=== PATIENT | female | born 1945 | race Caucasian/White ===

== ENCOUNTER 2017-03-15 15:44 | Inpatient (IN) | payer MEDICARE, OTHER ==
[~2017-03-15] VITALS: Ht 157.5 cm; Wt 57.0 kg
[~2017-03-15 15:44] MED LIST: ASPI81TA3 PO; CARV12.598 PO; CHOL2000 PO; DEXL60CA2 PO; EPOE10003 SC; FERR-55 PO; FOLI-49 PO; FURO-109 PO; GLIP-95 PO; HYDR-3672 PO; ISOS40TA15 PO; LYRI25 PO; NEPH PO; OMEP40CA6 PO; SIMV40TA2 PO; SMV40T PO; SODI650T PO
[2017-03-15] MEDS ORDERED: SOD CHLORIDE 0.9% 500 ML IV STA (17:32)
[2017-03-15] MEDS ORDERED: morphine 2 MG INJ IV STA (17:32)
[2017-03-15] MEDS ORDERED: ONDANSETRON 4 MG INJ IV STA (17:32)
[2017-03-15] MEDS ORDERED: METO10TA96 PO (18:06)
--- NOTE | 2017-03-15 18:09 | RADRPT ---
PROCEDURE: XR Chest. CLINICAL INDICATION: Shortness of breath. TECHNIQUE: Single frontal view. COMPARISON: 07/18/2016. FINDINGS: There is mild atelectasis at the lung bases with left worse than right, unchanged. The lungs are ot herwise clear. The heart is mildly enlarged. There is a small right pleural effusion, smaller than seen previously. A small left pleural effusio n is unchanged. There is no pneumothorax. IMPRESSION: 1. Small right pleural effusion, smaller than seen previously. 2. Otherwise no change from 07/18/2016. RPTAT: QQ .Pritesh Cole MD, MD Date Time Electronically viewed and signed by .Pritesh Cole MD, on 03/15/2017 18:09 .R/
--- NOTE | 2017-03-15 18:15 | ERA ---
ER Documentation Chief Complaint Date/Time DATE: 03/15/17 TIME: 18:12 Chief Complaint ap intermittent x 2 weeks, on dialisis HPI 71 yo F hx of esrd on HD who presents to ED with 2 weeks of abd pain and chest pain. The patient describes mild diffuse cramping abdominal discomfort with associated nausea but no vomiting no diarrhea for at least 2 weeks that has been increasing in intensity and frequency. She also describes chest pain that is pressure-like and palpitations that is usually exertional and that is also increasing in frequency. She was scheduled to have outpatient imaging as well as scheduled to have outpatient angiography on March 26. The patient had persistence and increasing frequency of symptoms therefore presented to the emergency room. No chest pain currently. ROS All systems reviewed and are negative except as per history of present illness. Medications Home Meds Active Scripts Furosemide* (Lasix*) 40 Mg Tab, 20 MG PO DAILY@06 for 28 Days, BOTTLE Prov:ROCIO EVANS MD 06/05/16 Glipizide* (Glipizide*) 10 Mg Tablet, 5 MG PO BID, #60 TAB Prov:ROCIO EVANS MD 06/05/16 Simvastatin* (Zocor*) 40 Mg Tablet, 40 MG PO HS for 28 Days, TAB Prov:JAH NOWAK MD 07/10/15 Isosorbide Dinitrate* (Isordil*) 40 Mg Tab, 40 MG PO BID for 28 Days Prov:JAH NOWAK MD 07/10/15 Hydralazine Hcl* (Hydralazine Hcl*) 50 Mg Tab, 50 MG PO BID for 28 Days, TAB Prov:JAH NOWAK MD 07/10/15 Carvedilol* (Coreg*) 12.5 Mg Tab, 12.5 MG PO BID for 28 Days, BOT Prov:JAH NOWAK MD 07/10/15 Aspirin (Aspirin) 81 Mg Chew, 81 MG PO DAILY for 28 Days, BOTTLE Prov:JAH NOWAK MD 07/10/15 Reported Medications Metoclopramide Hcl* (Metoclopramide Hcl*) 10 Mg Tablet, 10 MG PO TID, TAB 03/15/17 Pregabalin* (Lyrica*) 25 Mg Capsule, 25 MG PO Y for PAIN, CAP 07/18/16 Multivit/Ca Carb/B Cmplx/Fa* (Becky-Maddy*) 1 Tab Tab, 1 TAB PO DAILY, TAB 07/18/16 Dexlansoprazole (Dexilant) 60 Mg Ac., 60 MG PO DAILY, #30 CAP 07/18/16 Simvastatin (Simvastatin) 40 Mg Tablet, 40 MG PO DAILY, TAB 11/22/14 Ferrous Sulfate* (Ferrous Sulfate*) 325 Mg Tablet, 325 MG PO BID, TAB 11/22/14 Folic Acid* (Folic Acid*) 1 Mg Tablet, 1 MG PO DAILY, TAB 11/22/14 Sodium Bicarbonate* (Sodium Bicarbonate*) 650 Mg Tablet, 650 MG PO DAILY, TAB 11/22/14 Discontinued Reported Medications Epoetin simeon* (Epogen* (ESRD)) 10,000 Unit/1 Ml Vial, 91257 UNIT SC WEEKLY for ON , VIAL 07/07/15 Cholecalciferol* (Vitamin D3*) 2,000 Unit Cap, 2000 UNIT PO DAILY, CAP 07/07/15 Omeprazole* (Omeprazole*) 40 Mg Capsule., 40 MG PO DAILY 01/29/14 Allergies Allergies: Coded Allergies: No Known Allergy (Unverified , 07/29/16) PMhx/Soc History of Surgery: Yes (C SECTION, AVF LEFT ARM,CHOLECYSTECTOMY) Anesthesia Reaction: No Hx Neurological Disorder: No Hx Respiratory Disorders: No Hx Cardiac Disorders: Yes (HTN) Hx Psychiatric Problems: No Hx Miscellaneous Medical Probl: No Hx Alcohol Use: No Hx Substance Use: No Hx Tobacco Use: No FmHx Family History: No diabetes Physical Exam Vitals Vital Signs Date Time Temp Pulse Resp B/P Pulse Ox O2 Delivery O2 Flow Rate FiO2 03/15/17 19:53 55 12 137/78 96 Room Air 03/15/17 15:45 97.8 66 18 155/69 99 Physical Exam General: Well developed, well nourished, no acute distress Head: Normocephalic, atraumatic. Eyes: Pupils equally reactive, EOM intact ENT: Moist mucous membranes Neck: Supple, no lymphadenopathy Respiratory: Lungs clear bilaterally, no distress Cardiovascular: RRR, no murmurs, rubs, or gallops Abdominal: Soft, slightly protuberant but nontender, non-distended, no peritoneal signs : Deferred MSK: No edema, no unilateral swelling, 5/5 strength, left upper extremity AV fistula with good bruit and thrill Neurologic: Alert and oriented, moving all extremities, normal speech, no focal weakness, no cerebellar signs Skin: No rash Psych: Normal mood Result Diagram: 03/15/17181103/15/171811 Results 24 hrs Laboratory Tests Test 03/15/17 18:12 White Blood Count 5.210^3/ul Red Blood Count 3.5610^6/ul Hemoglobin 12.3g/dl Hematocrit 35.6% Mean Corpuscular Volume 100.0fl Mean Corpuscular Hemoglobin 34.6pg Mean Corpuscular Hemoglobin Concent 34.6g/dl Red Cell Distribution Width 13.8% Platelet Count 16158^3/UL Mean Platelet Volume 9.6fl Neutrophils % 50.6% Lymphocytes % 30.3% Monocytes % 13.9% Eosinophils % 4.0% Basophils % 0.6% Nucleated Red Blood Cells % 0.0/100WBC Neutrophils # 2.610^3/ul Lymphocytes # 1.610^3/ul Monocytes # 0.710^3/ul Eosinophils # 0.210^3/ul Basophils # 0.010^3/ul Nucleated Red Blood Cells # 0.010^3/ul Prothrombin Time 16.4Sec Prothrombin Time Ratio 1.3 INR International Normalized Ratio 1.31 Activated Partial Thromboplast Time 37.5Sec Sodium Level 129mmol/L Potassium Level 4.0mmol/L Chloride Level 87mmol/L Carbon Dioxide Level 27mmol/L Anion Gap 19 Blood Urea Nitrogen 45mg/dl Creatinine 4.38mg/dl Glucose Level 120mg/dl Calcium Level 8.5mg/dl Total Bilirubin 0.2mg/dl Direct Bilirubin 0.00mg/dl Indirect Bilirubin 0.2mg/dl Aspartate Amino Transf (AST/SGOT) 49IU/L Alanine Aminotransferase (ALT/SGPT) 46IU/L Alkaline Phosphatase 230IU/L Troponin I < 0.012ng/ml Total Protein 6.9g/dl Albumin 3.1g/dl Globulin 3.80g/dl Albumin/Globulin Ratio 0.81 Lipase 23U/L Current Medications Medications (Trade) Dose Ordered Sig/Maida Route PRN Reason Start Time Stop Time Status Last Admin Dose Admin Sodium Chloride (NS) 500 ml @ 500 mls/hr Q1H STAT IV 03/15/17 17:32 03/15/17 18:31 DC 03/15/17 18:44 Morphine Sulfate (morphine) 2 mg ONCE STAT IV 03/15/17 17:32 03/15/17 17:34 DC Ondansetron HCl (Zofran Inj) 4 mg ONCE STAT IV 03/15/17 17:32 03/15/17 17:34 DC 03/15/17 18:43 Hydromorphone HCl (Dilaudid) 0.5 mg ONCE STAT IV 03/15/17 18:30 03/15/17 18:31 DC 03/15/17 18:43 Procedures/MDM EKG, MONITORS, & DIAGNOSTIC IMAGING: EKG: I reviewed and interpreted a 12-lead EKG. Rhythm: Normal sinus rhythm Ectopy: None Intervals: Bifascicular block ST segments: No elevations or depressions T waves: No contiguous inversions Chest x-ray: I reviewed and interpreted a 1 view of the chest Mediastinum: No enlargement Cardiac silhouette: No cardiomegaly Airspace: Clear lung saab bilaterally without evidence of pneumothorax Bones: No evidence of fracture CT abdomen and pelvis: IMPRESSION: No evidence of abdominopelvic mass, lymphadenopathy or acute inflammatory pathology. Scattered bibasilar atelectasis with trace bilateral pleural fluid. RPTAT: QQ LAB INTERPRETATION: Chronic renal failure, no hyperkalemia, hyponatremia, negative troponin MEDICAL DECISION MAKING: The patient has multiple complaints including 2 weeks of chest pain abdominal pain however these have been increasing in intensity and frequency. The chest pain is exertional. Given the patient's age, comorbidities this is a strong concern for possible cardiac etiology. It appears the patient is scheduled for an angiogram by Dr. Marsh on March 26. The patient also describes abdominal pain. I do not believe this is consistent with acute dissection given chronicity of symptoms. The patient will benefit from CT imaging of the abdomen and pelvis. Given the patient's chest pain inpatient hospitalization is likely necessary. ER COURSE: The patient continues to be well-appearing, aspirin provided after negative CT imaging. The patient is chest pain-free, her abdominal pain is controlled. The patient will be admitted for further management of chest pain. I kept the patient and/or family informed of laboratory and diagnostic imaging results throughout the emergency room course. DISPOSITION PLAN: Telemetry admission for management of chest pain and rule out of acute coronary syndrome. CONSULTATION: Accepting care team and consultations: I discussed the current laboratory data, diagnostic imaging and emergency care provided. Admitting team: Dr. Jah Nowak Admitting team indication: Insurance directed Consulting services: Dr. Marsh can be consulted on a nonemergent basis Departure Diagnosis: Primary Impression: Chest pain Qualified Code: R07.9 - Chest pain, unspecified type Additional Impressions: Generalized abdominal pain End stage renal disease on dialysis Hyponatremia Condition: Stable MICHELLE BAILEY MD March 15, 2017 18:15
[2017-03-15 18:29] LABS: ADD SCAN DIFF NO
[2017-03-15] MEDS ORDERED: HYDROmorphONE 1 MG/ML SYG IV STA (18:30)
[2017-03-15 18:32] LABS: BASOPHILS % 0.6 % (0.0-2.0); EOSINOPHILS # 0.2 10^3/ul (0.0-0.5); HEMATOCRIT 35.6 % (37.0-47.0); HEMOGLOBIN 12.3 g/dl (12.0-16.0); LYMPHOCYTES # 1.6 10^3/ul (0.8-2.9); LYMPHOCYTES % 30.3 % (15.0-51.0); MEAN CORPUSCULAR HEMOGLOBIN 34.6 pg (29.0-33.0); MEAN CORPUSCULAR HGB CONC 34.6 g/dl (32.0-37.0); MEAN PLATELET VOLUME 9.6 fl (7.4-10.4); MONOCYTE # 0.7 10^3/ul (0.3-0.9); MONOCYTES % 13.9 % (0.0-11.0); NEUTROPHIL # 2.6 10^3/ul (1.6-7.5); NEUTROPHILS % 50.6 % (39.0-77.0); PLATELET COUNT 173 10^3/UL (140-415); RED BLOOD COUNT 3.56 10^6/ul (4.20-5.40); RED CELL DISTRIBUTION WIDTH 13.8 % (11.5-14.5); WHITE BLOOD COUNT 5.2 10^3/ul (4.8-10.8)
[2017-03-15 18:41] LABS: ALBUMIN 3.1 g/dl (3.3-4.9); CHLORIDE 87 mmol/L (97-110); SODIUM 129 mmol/L (135-144)
[2017-03-15 18:42] LABS: INR 1.31; PROTIME 16.4 Sec (12.2-14.2); PT RATIO 1.3
[2017-03-15 18:43] LABS: ANION GAP 19 (8-16); BILIRUBIN,INDIRECT 0.2 mg/dl (0-1.1); BILIRUBIN,TOTAL 0.2 mg/dl (0.2-1.3); CARBON DIOXIDE 27 mmol/L (21-31); CREATININE 4.38 mg/dl (0.44-1.00); PARTIAL THROMBOPLASTIN TIME 37.5 Sec (25.0-35.0)
[2017-03-15 18:44] LABS: ALANINE AMINOTRANSFERASE 46 IU/L (13-69); ALBUMIN/GLOBULIN RATIO 0.81; ALKALINE PHOSPHATASE 230 IU/L (42-121); ASPARTATE AMINO TRANSFERASE 49 IU/L (15-46); BLOOD UREA NITROGEN 45 mg/dl (7-20); CALCIUM 8.5 mg/dl (8.4-10.2); GLUCOSE 120 mg/dl (70-220); TOTAL PROTEIN 6.9 g/dl (6.1-8.1)
[2017-03-15 19:01] LABS: TROPONIN-I < 0.012 ng/ml (0.00-0.12)
--- NOTE | 2017-03-15 19:51 | RADRPT ---
PROCEDURE: CT Abdomen and Pelvis without contrast. CLINICAL INDICATION: Abdominal pain. TECHNIQUE: Multiple contiguous axial CT images of the abdomen and pelvis were obtained without the administration of intravenous contrast. Coronal and sagittal reconstructions were also performed. CTDIvol (mGy): 7.94; Total Exam DLP (mGy-cm): 386.12. One or more of the following dose reduction techniques were utilized: - Automated exposure control. - Adjustment of the mA and/or kV according to patient size. - Use of iterative reconstruction technique. COMPARISON: 06/02/2016. FINDINGS: Limited imaging of the lower thorax demonstrates cardiomegaly with trace bilateral pleural fluid and scattered atelectasis throughout the lung bases. The liver and spleen are homogeneous in density. Multiple splenules are seen within the left upper q uadrant. The gallbladder is surgically absent. Fatty atrophy of the pancreas is observed. The adre nal glands are unremarkable. The kidneys are symmetric in size. There are no nephroureteral stones. There is no hydronephrosis o r abnormal perinephric inflammation. The abdominal aorta is normal in caliber. Atherosclerotic calcification is present. There is no per iaortic / retroperitoneal lymphadenopathy. 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 The stomach and small and large intestines are unremarkable. The appendix is normal. There are no focal inflammatory changes of the mesentery. There is no mesenteric lymphadenopathy. There is no a scites. The bladder, uterus and adnexa are unremarkable. There is no free pelvic fluid. There is no pelvic sidewall or inguinal lymphadenopathy. Degenerative changes of the spine are present. Body wall soft tissues are unremarkable. IMPRESSION: No evidence of abdominopelvic mass, lymphadenopathy or acute inflammatory pathology. Scattered bibasilar atelectasis with trace bilateral pleural fluid. RPTAT: QQ .Amie Herrera MD, Date Time Electronically viewed and signed by .Amie Herrera MD, MD on 03/15/2017 19:51 .T/
[2017-03-15] MEDS ORDERED: METOCLOPRAMIDE 10 MG INJ IV ONE (20:30)
[2017-03-15] MEDS ORDERED: ACETAMINOPHEN 325 MG TAB PO PRN (20:30)
[2017-03-15] MEDS ORDERED: ASPIRIN 81 MG TAB PO ONE (20:30)
[2017-03-15] MEDS ORDERED: ONDANSETRON 4 MG INJ IV PRN (20:30)
[2017-03-15 22:44] VITALS: PULSE 56
[2017-03-15 23:00] VITALS: Ht 157.5 cm; Wt 57.0 kg
[2017-03-16] VITALS (24 sets, daily range): BP systolic 110–192; BP diastolic 48–91; PULSE 55–90; RESP 17–20
[2017-03-16] MEDS ORDERED: SOD CHLORIDE 0.9% 1,000 ML IV SCH (01:30)
[2017-03-16] MEDS ORDERED: ONDANSETRON 4 MG INJ IV PRN (01:30)
[2017-03-16] MEDS ORDERED: DEXTROSE 50% 50 ML SYRINGE IV PRN ×2 (02:00)
[2017-03-16] MEDS ORDERED: GLUCOSE GEL 15 GRAM TUBE BUCCAL PRN (02:00)
[2017-03-16] MEDS ORDERED: GLUCOSE GEL 15 GRAM TUBE PO PRN ×2 (02:00)
[2017-03-16] MEDS: ACCU-CHEK XX SCH (02:00)
[2017-03-16] MEDS ORDERED: GLUCAGON 1 MG INJ IM PRN (02:00)
[2017-03-16] MEDS: INSULIN ASPART [NOVOLOG] 3 ML PEN SC SCH ×4 (08:00→20:59)
[2017-03-16 08:29] LABS: ADD SCAN DIFF NO
[2017-03-16 08:38] LABS: BASOPHILS % 0.2 % (0.0-2.0); EOSINOPHILS # 0.1 10^3/ul (0.0-0.5); EOSINOPHILS % 1.2 % (0.0-7.0); HEMATOCRIT 36.1 % (37.0-47.0); LYMPHOCYTES # 1.3 10^3/ul (0.8-2.9); LYMPHOCYTES % 23.3 % (15.0-51.0); MEAN CORPUSCULAR HEMOGLOBIN 33.9 pg (29.0-33.0); MEAN CORPUSCULAR HGB CONC 33.2 g/dl (32.0-37.0); MEAN PLATELET VOLUME 10.1 fl (7.4-10.4); MONOCYTE # 0.6 10^3/ul (0.3-0.9); MONOCYTES % 11.2 % (0.0-11.0); NEUTROPHIL # 3.6 10^3/ul (1.6-7.5); NEUTROPHILS % 63.6 % (39.0-77.0); PLATELET COUNT 169 10^3/UL (140-415); RED BLOOD COUNT 3.54 10^6/ul (4.20-5.40); RED CELL DISTRIBUTION WIDTH 14.1 % (11.5-14.5); WHITE BLOOD COUNT 5.6 10^3/ul (4.8-10.8)
[2017-03-16 08:55] LABS: ALBUMIN 3.2 g/dl (3.3-4.9); ALBUMIN/GLOBULIN RATIO 0.91; BILIRUBIN,INDIRECT 0.2 mg/dl (0-1.1); BILIRUBIN,TOTAL 0.2 mg/dl (0.2-1.3); CALCIUM 8.7 mg/dl (8.4-10.2); CHOL/HDL RATIO 3.5 RATIO; CREATININE 4.28 mg/dl (0.44-1.00); POTASSIUM 4.9 mmol/L (3.5-5.1); TOTAL PROTEIN 6.7 g/dl (6.1-8.1)
[2017-03-16] MEDS: MULTIVIT/CA CARB/B CMPLX/FA TAB PO SCH (09:18)
[2017-03-16] MEDS: ASPIRIN 81 MG TAB PO SCH (09:18)
[2017-03-16] MEDS: FERROUS SULFATE (EC) 325 MG TAB PO SCH (09:19)
[2017-03-16] MEDS: NA BICARBONATE 650 MG TAB PO SCH (09:19)
[2017-03-16] MEDS: FOLIC ACID 1 MG TAB PO SCH (09:19)
--- NOTE | 2017-03-16 17:31 | QN ---
Documentation Comment [id number] CRISTA SHAHID MD March 16, 2017 17:31
[2017-03-16] MEDS ORDERED: hydrALAzine 20 MG INJ IV PRN (22:30)
[2017-03-16] MEDS: ACETAMINOPHEN 325 MG TAB PO PRN (23:01)
--- NOTE | 2017-03-16 23:59 | RADRPT ---
Echocardiogram Report Patient Name: CHOLO OJEDA Gender: Female Date: 1945 Study Date: 16-Mar-2017 Life Coach: Herminia Meadows [facility] Location: 5551 Ref. Physician: CRISTA SHAHID Quality: Adequate Procedures: Transthoracic echocardiogram with complete 2D, M-Mode, and doppler examination. Indications: Chest Pain. 2D/M Mode Doppler Measurement Value Normal Ranges Measurement Value Normal Ranges LVIDd 2D 5.2 3.5 - 5.6 cm AV Peak Leighton 1.5 m/sec LVIDs 2D 4.1 2.1 - 4.1 cm AV Peak PG 9.3 mmHg LVPWd 2D 1.0 0.6 - 1.1 cm AI Peak PG 22.0 mmHg IVSd 2D 1.1 0.6 - 1.1 cm AI Peak Leighton 2.3 m/sec AoR Diam 2D 2.0 2.0 - 3.7 cm AI PHT 853.8 msec EDV 2D 131.5 cm3 LVOT Peak Leighton 0.9 m/sec ESV 2D 67.0 cm3 LVOT Peak PG 3.3 mmHg LA Dimen 2D 4.4 2.3 - 4.0 cm MV E Peak Leighton 1.2 m/sec MV A Peak Leighton 0.9 m/sec MV E/A 1.5 MV Decel Time 233 msec MV Decel Dorado 5 MV E/A 1.5 TR Peak Leighton 3.9 m/sec TR Peak PG 59.4 mmHg RVSP 62.0 mmHg Findings Left Ventricle: Normal left ventricular cavity size. Mild concentric left ventricular hypertrophy. Mild global left ventricular systolic dysfunction. Ejection fraction is visually estimated at 45 %. Tissue Doppler/Mitral Doppler indices are consistent with impaired relaxation (Stage I diastolic dysfunction). Right Ventricle: Normal right ventricular size. Normal right ventricular systolic function. Left Atrium: There is moderate enlargement of left atrium. Right Atrium: There is moderate enlargement of right atrium. Mitral Valve: Mild mitral annular calcification. Moderate mitral valve regurgitation. Aortic Valve: No hemodynamically significant aortic stenosis by doppler. Aortic cusps appear mildly calcified. Mild to moderate aortic valve regurgitation. Tricuspid Valve: Estimated peak PA systolic pressure 62 mmHg. Tricuspid valve appears mildly thickened. There is moderate tricuspid regurgitation. Pulmonic Valve: There is mild pulmonic regurgitation. Pericardium: Normal pericardium with no significant pericardial effusion. Aorta: Normal aortic root. IVC: Dilated IVC with respiratory collapse consistent with elevated right atrial pressure. Conclusions 1.Normal left ventricular cavity size. Mild concentric left ventricular hypertrophy. Mild global left ventricular systolic dysfunction. Ejection fraction is visually estimated at 45 %. Tissue Doppler/Mitral Doppler indices are consistent with impaired relaxation (Stage I diastolic dysfunction). 2.There is moderate enlargement of left atrium. 3.There is moderate enlargement of right atrium. 4.Moderate mitral valve regurgitation. 5.Mild to moderate aortic valve regurgitation. 6.Estimated peak PA systolic pressure 62 mmHg. Tricuspid valve appears mildly thickened. There is moderate tricuspid regurgitation. 7.There is mild pulmonic regurgitation. Electronically Signed By: Modesto Marsh 16-Mar-2017 23:59:03 -0700 Patient Name: CHOLO OJEDA Study Date: 16-Mar-2017 [id number]
[2017-03-17] VITALS (11 sets, daily range): BP systolic 118–165; BP diastolic 55–72; PULSE 59–69; RESP 17–18
[2017-03-17 01:53] LABS: CK-MB 3.1 ng/ml (0.0-2.4)
[2017-03-17 01:56] LABS: TROPONIN-I 0.014 ng/ml (0.00-0.12)
[2017-03-17] MEDS: ACCU-CHEK XX SCH (02:00)
--- NOTE | 2017-03-17 02:01 | CONS ---
DATE OF ADMISSION: 03/16/2017 DATE OF CONSULTATION: 03/16/2017 REASON FOR CONSULTATION: Chest pain, shortness of breath, assess for acute coronary syndrome. Asse ss for congestive heart failure. REQUESTING PHYSICIAN: Jah Shahid MD HISTORY OF PRESENT ILLNESS: Ms. Stiles is a 71-year-old female, well known to myself as a primary o ffice patient, with a history of hypertension, dyslipidemia, end-stage renal disease on hemodialysis , AV fistula who presented with complaints of substernal chest pain, poorly described, and associate d shortness of breath. Upon arrival, temperature of 97.8, blood pressure 155/69, pulse 66, respirat ory rate 18, saturating 99%. The patient's labs revealed a white cell of 5.2, hemoglobin 12.3, plat elet count of 173. Sodium of 129, potassium 4.0, creatinine of 4.3, BUN of 45. Troponin negative. INR 1.31. The patient underwent a chest x-ray revealing small right pleural effusion, smaller than seen previously. An abdominal pelvic CT revealing no evidence of abdominopelvic mass, lymphadenopa thy, or acute inflammatory pathology, scattered bibasilar atelectasis with trace bilateral pleural f luid. The patient's electrocardiogram revealed sinus rhythm, rate of 64 with left axis deviation, r ight bundle branch block, left ventricular hypertrophy by voltage criteria, and a single PVC. The p atient subsequently admitted to the floor and, since admit to floor, continues to have shortness of breath, intermittent chest pain, poorly described. PAST MEDICAL HISTORY: As above in HPI. MEDICATIONS CURRENTLY IN HOSPITAL: 1. Hydralazine IV push p.r.n. 2. Aspirin 81 mg daily. 3. Folic acid 1 mg daily. 4. Sodium bicarbonate 650 mg daily. 5. Ferrous sulfate 325 mg daily. 6. Renavite 1 tab daily. 7. Insulin sliding scale. 8. Clonidine p.r.n. 9. Carvedilol 12.5 mg p.o. b.i.d. MEDICATIONS PRIOR TO ADMIT: 1. Carvedilol 12.5 mg b.i.d. 2. Hydralazine 50 mg p.o. b.i.d. 3. Isordil 40 mg p.o. b.i.d. 4. Simvastatin 40 mg at bedtime. 5. Aspirin 81 mg daily. 6. Lyrica 25 mg p.r.n. 7. Lasix 20 mg daily. 8. Reglan. 9. Sodium bicarbonate. 10. Multivitamins. ALLERGIES: NO KNOWN DRUG ALLERGIES. SOCIAL HISTORY: No tobacco, ETOH, or illicit drug use. FAMILY HISTORY: No history of sudden cardiac or early CAD. REVIEW OF SYSTEMS: As above in HPI. CONSTITUTIONAL: No fevers, chills. PULMONARY: Shortness of breath. CARDIOVASCULAR: Positive chest pain. GASTROINTESTINAL: No vomiting. GENITOURINARY: End-stage renal disease on hemodialysis. PSYCHIATRIC: The patient denies depression. NEUROLOGIC: No documented history of CVA. ENDOCRINE: No documented history of diabetes mellitus. PHYSICAL EXAMINATION: VITAL SIGNS: Temperature 97.8, blood pressure most recently of 179/71, pulse 72, respiratory rate 1 8, satting 98%. GENERAL: The patient is alert, awake, complaining of shortness of breath, intermittent chest pain. NECK: JVP approximately 9 cm water. CHEST: Fair movement throughout with mildly decreased breath sounds at bases bilaterally. HEART: Regular rate and rhythm. Normal S1, S2, I/ systolic murmur, nondisplaced PMI. ABDOMEN: Positive bowel sounds, soft. EXTREMITIES: Trace edema, 1+ pulses bilaterally, posterior tibial. LABORATORY DATA: Most recently from today: Sodium 126, potassium 4.9, creatinine 4.8, BUN 16. Tro ponin negative x2. LDL of 66, HDL 33. White blood count 5.6, hemoglobin of 12.0, platelet count 16 9. INR of 1.31. IMAGING STUDIES: As above in HPI. No further imaging studies for my review at this time. ELECTROCARDIOGRAM: As above in HPI. No further electrocardiograms for my review at this time. IMPRESSION: 1. Chest pain, assess for acute coronary syndrome with negative troponins x2 at this time with poor ly described symptoms. 2. Abnormal electrocardiogram with right bundle block pattern secondary to repolarization abnormali ties. 3. Premature ventricular contractions on electrocardiogram. 4. Shortness of breath, assess for congestive heart failure. 5. End-stage renal disease on hemodialysis. 6. Hyponatremia. 7. Possible diabetes mellitus on medications. RECOMMENDATIONS: 1. At this time, would maintain the patient on telemetry monitoring to follow rhythm and rate contr ol closely. 2. We will continue the patient's current carvedilol for control of blood pressure and will additio adriano reinitiate patient on baseline hydralazine to improve overall systolic blood pressure control. 3. Complete the patient's rule out for myocardial infarction to ensure that the patient's chest vikash n is not due to acute coronary syndrome, such as acute myocardial infarction. Thus send a final tro ponin along with CK and CK-MB, given lack of adequate clearance troponins in setting of renal failur e. 4. Continue the patient's aspirin at this time for prophylaxis against cardiovascular events. 5. Will reinitiate patient on baseline low-dose oral nitrates and follow symptomatology. 6. Check a 2D echo to further assess patient's ejection fraction, wall motion, and major valve abno rmalities. 7. If patient rules out for myocardial infarction, we will schedule patient for cardiac stress test to assess for the possibility of significant obstructive coronary disease lending to the patient's symptoms of chest pain or causing ischemia. Thank you for allowing me to take part in the care of this patient. I will continue to follow along very closely with you. Further recommendations will be made as the patient progresses through her inpatient hospital clinical course. Dictated By: MICHELLE VALDEZ/RONNIE Conf#: [id number] DID#: [id number] CC: JAH SHAHID MD;*EndCC*
[2017-03-17 06:47] LABS: ADD SCAN DIFF NO
[2017-03-17 06:52] LABS: BASOPHILS % 0.4 % (0.0-2.0); EOSINOPHILS # 0.1 10^3/ul (0.0-0.5); EOSINOPHILS % 2.2 % (0.0-7.0); HEMATOCRIT 35.9 % (37.0-47.0); HEMOGLOBIN 11.8 g/dl (12.0-16.0); LYMPHOCYTES # 0.8 10^3/ul (0.8-2.9); LYMPHOCYTES % 18.3 % (15.0-51.0); MEAN CORPUSCULAR HEMOGLOBIN 33.5 pg (29.0-33.0); MEAN CORPUSCULAR HGB CONC 32.9 g/dl (32.0-37.0); MEAN PLATELET VOLUME 9.9 fl (7.4-10.4); MONOCYTE # 0.6 10^3/ul (0.3-0.9); MONOCYTES % 12.2 % (0.0-11.0); NEUTROPHILS % 66.5 % (39.0-77.0); PLATELET COUNT 157 10^3/UL (140-415); RED BLOOD COUNT 3.52 10^6/ul (4.20-5.40); RED CELL DISTRIBUTION WIDTH 14.6 % (11.5-14.5); WHITE BLOOD COUNT 4.5 10^3/ul (4.8-10.8)
--- NOTE | 2017-03-17 07:04 | HP ---
DATE OF ADMISSION: 03/16/2017 HISTORY OF PRESENT ILLNESS: Mor Stiles is an elderly female with history of ESRD, hypertension. The patient has history of CAD, previously has been discharged with diagnosis of CKD 5, ESRD, history of diabetes mellitus, hypertension, dyslipidemia, CAD, presented with shortness of breath, chest pain , and abdominal pain. The patient's laboratory data shows the patient has blood pressure 150_/72. The patient's hematocrit 36.1, platelet count of 169, sodium 126, potassium 4.9 , BUN of 49, creatinine 4.28, alkaline phosphatase 184. Troponin is negative. Ultrasound of the abdomen shows no evidence of abdominopelvic mass, lymphadenopathy, or acute inflammatory, scattered basilar atelectasis with trace pleural effusion. Chest x-ray has a small right pleural effusion, smaller than the . ALLERGY HISTORY: NEGATIVE. FAMILY HISTORY: Negative. SOCIAL HISTORY: Negative. MEDICATION HISTORY: Listed as patient is on aspirin, Coreg, Dexilant,_, folic acid, Lasix, , Nephro-Maddy, Reglan, multiple vitamin, simvastatin, Zocor, and sodium bicarbonate. REVIEW OF SYSTEMS: HEENT: Unremarkable. RESPIRATORY: Short of breath, dyspnea on exertion. ABDOMEN: occ_ abdominal pain. EXTREMITIES: No swelling seen. CENTRAL NERVOUS SYSTEM: Unremarkable. PHYSICAL EXAMINATION: GENERAL: Pale-looking female, awake. VITAL SIGNS: Stable. HEAD: Atraumatic, normocephalic. Pupils are equal, reactive to light. NECK: Supple. No JVD. LUNGS: Clear. CARDIOVASCULAR: S1, S2 normal. ABDOMEN: Soft, nontender. Bowel sounds present. No palpable mass. EXTREMITIES: No cyanosis, clubbing. Trace edema noted. LABORATORY DATA: As mentioned above. Patient's EKG has been reviewed. IMPRESSION: 1. ____ ischemic heart disease, dyspepsia, rule out gastroesophageal reflux disease. 2. End-stage renal disease. 2. Hypertension. 3. Diabetes mellitus. 4. Anemia. 5. Hypernatremia. 6. Hypoalbuminemia. PLAN: To obtain GI consultation, cardiology consultation. Continue renal diet , hemodialysis. RECOMMENDATIONS: From cardiology. Home medications will be reviewed and continued. Dictated By: CRISTA SCHNEIDER/RONNIE Conf#: [id number] DID#: [id number] [facility]
[2017-03-17 07:10] LABS: ALBUMIN 2.9 g/dl (3.3-4.9); ALBUMIN/GLOBULIN RATIO 0.82; BILIRUBIN,INDIRECT 0.2 mg/dl (0-1.1); BILIRUBIN,TOTAL 0.2 mg/dl (0.2-1.3); CALCIUM 8.4 mg/dl (8.4-10.2); CREATININE 3.61 mg/dl (0.44-1.00); POTASSIUM 3.8 mmol/L (3.5-5.1); TOTAL PROTEIN 6.4 g/dl (6.1-8.1)
[2017-03-17 07:22] LABS: CK-MB 2.98 ng/ml (0.0-2.4); TROPONIN-I 0.028 ng/ml (0.00-0.12)
[2017-03-17] MEDS: INSULIN ASPART [NOVOLOG] 3 ML PEN SC SCH ×4 (08:00→20:41)
[2017-03-17] MEDS: ISOSORBIDE DINITRATE 10 MG TAB PO SCH ×3 (08:37→20:36)
[2017-03-17] MEDS: MULTIVIT/CA CARB/B CMPLX/FA TAB PO SCH (08:37)
[2017-03-17] MEDS: ASPIRIN 81 MG TAB PO SCH (08:37)
[2017-03-17] MEDS: NA BICARBONATE 650 MG TAB PO SCH (08:37)
[2017-03-17] MEDS: FOLIC ACID 1 MG TAB PO SCH (08:43)
--- NOTE | 2017-03-17 08:59 | CONS ---
Date/Time of Note Date/Time of Note DATE: 03/17/17 TIME: 08:57 Assessment/Plan Assessment/Plan Additional Assessment/Plan 1. Chest pain, assess for acute coronary syndrome with negative troponins x2 at this time with poorly described symptoms- Sahra stress test planned for today. 2. Abnormal electrocardiogram with right bundle block pattern secondary to repolarization abnormalities- no brodie noted. 3. Premature ventricular contractions on electrocardiogram - better now, keep electrolytes in range. 4. Shortness of breath, assess for congestive heart failure - pending ECHO. 5. End-stage renal disease on hemodialysis- Rx as needed. 6. Hyponatremia. 7. Possible diabetes mellitus on medications. Consultation Date/Type/Reason Admit Date/Time March 16, 2017 at 11:28 Initial Consult Date 24 HR Interval Summary Free Text/Dictation Sahra stress test planned for today. NO CP. Rare PVC. ROS: No fever, no chills, no nausea, no vomiting, no diarrhea/constipation No recent weight changes No chest pain, no PND, no orthopnea No dizziness, blurred vision No thirst, no heat or cold intolerance Exam/Review of Systems Vital Signs Vitals Vital Signs Date Time Temp Pulse Resp B/P Pulse Ox O2 Delivery O2 Flow Rate FiO2 03/17/17 08:11 59 03/17/17 07:45 97.6 18 118/55 96 03/16/17 22:00 Room Air 03/16/17 20:00 2.0 Intake and Output 03/16/17 03/16/17 03/17/17 15:00 23:00 07:00 Intake Total 300 ml 120 ml Output Total 2800 ml Balance -2500 ml 120 ml Exam General: WN/WD/NAD, AOx 2-3 HEENT: Unicetric/atraumatic/EOMI (follows commands) NECK: JVD elevated, no thyromegaly Lymph: no lymphadenopathy HEART: regular with no S3, II/ systolic murmur at apex LUNGS: Coarse sounds ABD: soft, NT, ND, +BS : Intact Neuro: non focal SKIN: chronic changes EXT: trace edema Results Result Diagram: 03/17/17 0545 03/17/17 0545 Results 24 hrs Laboratory Tests Test 03/16/17 11:05 03/16/17 12:26 03/16/17 17:33 03/16/17 17:40 Troponin I < 0.012 < 0.012 Bedside Glucose 120 230 H Test 03/16/17 20:58 03/17/17 00:40 03/17/17 05:45 03/17/17 07:59 Bedside Glucose 171 162 Creatine Kinase 189 177 Creatine Kinase Index 1.6 1.7 Creatinine Kinase MB (Mass) 3.10 H 2.98 H Troponin I 0.014 0.028 White Blood Count 4.5 L Red Blood Count 3.52 L Hemoglobin 11.8 L Hematocrit 35.9 L Mean Corpuscular Volume 102.0 H Mean Corpuscular Hemoglobin 33.5 H Mean Corpuscular Hemoglobin Concent 32.9 Red Cell Distribution Width 14.6 H Platelet Count 157 Mean Platelet Volume 9.9 Neutrophils % 66.5 Lymphocytes % 18.3 Monocytes % 12.2 H Eosinophils % 2.2 Basophils % 0.4 Nucleated Red Blood Cells % 0.0 Neutrophils # 3.0 Lymphocytes # 0.8 Monocytes # 0.6 Eosinophils # 0.1 Basophils # 0.0 Nucleated Red Blood Cells # 0.0 Sodium Level 134 L Potassium Level 3.8 Chloride Level 103 # Carbon Dioxide Level 23 Anion Gap 12 Blood Urea Nitrogen 39 H Creatinine 3.61 H Glucose Level 194 Calcium Level 8.4 Total Bilirubin 0.2 Direct Bilirubin 0.00 Indirect Bilirubin 0.2 Aspartate Amino Transf (AST/SGOT) 40 Alanine Aminotransferase (ALT/SGPT) 38 Alkaline Phosphatase 171 H Total Protein 6.4 Albumin 2.9 L Globulin 3.50 H Albumin/Globulin Ratio 0.82 Medications Medications Current Medications Aspirin (Aspirin) 81 mg DAILY PO Last administered on 03/17/17 08:37; Admin Dose 81 MG; Start 03/16/17 at 09:00 Carvedilol (Coreg) 12.5 mg BID PO Last administered on 03/17/17 08:38; Admin Dose 12.5 MG; Start 03/16/17 at 00:00 Sodium Bicarbonate (Sodium Bicarbonate Tab) 650 mg DAILY PO Last administered on 03/17/17 08:37; Admin Dose 650 MG; Start 03/16/17 at 09:00 Folic Acid (Folic Acid) 1 mg DAILY PO Last administered on 03/17/17 08:43; Admin Dose 1 MG; Start 03/16/17 at 09:00 Ferrous Sulfate (Ferrous Sulfate (Ec)) 325 mg DAILY PO Last administered on 09:19; Admin Dose 325 MG; Start 03/16/17 at 09:00 Multivit/Ca Carb/ B Cmplx/FA/Prenat (Becky-Maddy) 1 tab DAILY PO Last administered on 03/17/17 08:37; Admin Dose 1 TAB; Start 03/16/17 at 09:00 Pregabalin 25 mg 25 mg PRN PRN PO PAIN AND/OR INFLAMMATION; Start 03/16/17 at 00:00 Sodium Chloride (NS) 1,000 ml @ 0 mls/hr Q0M IV ; Start 03/16/17 at 01:30 Ondansetron HCl (Zofran Inj) 4 mg Q4H PRN IV NAUSEA AND/OR VOMITING; Start at 01:30 Diagnostic Test (Pha) (Accu-Chek) 1 ea 02 XX Last administered on 03/16/17 02: 00; Admin Dose 1 EA; Start 03/16/17 at 02:00 Miscellaneous Information 1 ea NOTE XX ; Start 03/16/17 at 02:00 Glucose (Glutose) 15 gm Q15M PRN PO DECREASED GLUCOSE; Start 03/16/17 at 02:00 Glucose (Glutose) 22.5 gm Q15M PRN PO DECREASED GLUCOSE; Start 03/16/17 at 02: 00 Dextrose (D50w Syringe) 25 ml Q15M PRN IV DECREASED GLUCOSE; Start 03/16/17 at 02:00 Dextrose (D50w Syringe) 50 ml Q15M PRN IV DECREASED GLUCOSE; Start 03/16/17 at 02:00 Glucagon (Glucagen) 1 mg Q15M PRN IM DECREASED GLUCOSE; Start 03/16/17 at 02:00 Glucose (Glutose) 15 gm Q15M PRN BUCCAL DECREASED GLUCOSE; Start 03/16/17 at 02 :00 Clonidine (Catapres) 0.1 mg Q4H PRN PO htn Last administered on 03/16/17 21:06 ; Admin Dose 0.1 MG; Start 03/16/17 at 07:00 Hydralazine HCl (Apresoline) 10 mg Q6H PRN IV ELEVATED BLOOD PRESSURE Last administered on 03/16/17 23:01; Admin Dose 10 MG; Start 03/16/17 at 22:30 Acetaminophen (Tylenol Tab) 650 mg Q6H PRN PO PAIN AND OR ELEVATED TEMP Last administered on 03/16/17 23:01; Admin Dose 650 MG; Start 03/16/17 at 22:30 Hydralazine HCl (Apresoline) 25 mg Q8 PO Last administered on 03/17/17 06:12; Admin Dose 25 MG; Start 03/17/17 at 06:00 Isosorbide Dinitrate (Isordil) 10 mg TID PO Last administered on 03/17/17 08: 37; Admin Dose 10 MG; Start 03/17/17 at 09:00 SOFIA BERG MD March 17, 2017 08:59
[2017-03-17] MEDS ORDERED: REGADENOSON 0.4 MG/5 ML SYG ONE (10:04)
[2017-03-17] MEDS: FERROUS SULFATE (EC) 325 MG TAB PO SCH (12:12)
[2017-03-17] MEDS: ACETAMINOPHEN 325 MG TAB PO PRN (12:12)
--- NOTE | 2017-03-17 13:21 | RADRPT ---
PROCEDURE: Lexiscan myocardial perfusion study CLINICAL INDICATION: 71 -year-old patient complaining of chest pain. TECHNIQUE: Lexiscan 0.4 mg intravenously separate acquisition gated myocardial perfusion SPECT usi ng Tc 99m Myoview 27.6 mCi intravenously at stress and Tc-99m Myoview, 8.2 mCi intravenously at rest was performed using the rest/stress sequence. Poststress Myoview SPECT images were obtained in the supine position. COMPARISON: February 01, 2014. FINDINGS: Perfusion images reveal no evidence of perfusion defects. Lexiscan post stress gated SPECT images demonstrate no wall motion abnormalities. IMPRESSION: 1. Normal study with no evidence of new perfusion defects or new wall motion abnormalities. 2. The left ventricle ejection fraction at stress is greater than 70%, unchanged since the previous study. A call report was made to Dr. Pimentel at 01:19 p.m. on March 17, 2017. RPTAT: HH .Jessica Shepard MD, MD Date Time Electronically viewed and signed by .Jessica Shepard MD, on 03/17/2017 13:20 .L/
--- NOTE | 2017-03-17 14:20 | RADRPT ---
Vent Rate: 62 bpm RR Interval: 0 msec ND Interval: 170 msec QRS Duration: 146 msec QT Interval: 496 msec QTC Interval: 503 msec P-R-T [place]: 1 - -57 - -25 degrees Normal sinus rhythm Right bundle branch block Left anterior fascicular block Bifascicular block Left ventricular hypertrophy with repolarization abnormality Abnormal ECG Electronically Signed By: Maxx Richard [id number]
[2017-03-17] MEDS: PREGABALIN 25 MG CAP PO PRN (21:40)
--- NOTE | 2017-03-17 23:45 | PN ---
Date/Time of Note Date/Time of Note DATE: 03/17/17 TIME: 23:45 Assessment/Plan VTE Prophylaxis VTE Prophylaxis Intervention: other Assessment/Plan Chief Complaint/Hosp Course IMPRESSION: 1. ____ ischemic heart disease, dyspepsia, rule out gastroesophageal reflux disease. 2. End-stage renal disease. 2. Hypertension. 3. Diabetes mellitus. 4. Anemia. 5. Hypernatremia. 6. Hypoalbuminemia. PLAN PER CARDIO HD AM Problems: Subjective 24 Hr Interval Summary Constitutional: no complaints Exam/Review of Systems Vital Signs Vitals Vital Signs Date Time Temp Pulse Resp B/P Pulse Ox O2 Delivery O2 Flow Rate FiO2 03/17/17 20:32 66 03/17/17 20:01 Nasal Cannula 2.0 03/17/17 19:42 98.7 18 128/58 97 Intake and Output 03/16/17 03/16/17 03/17/17 15:00 23:00 07:00 Intake Total 300 ml 120 ml Output Total 2800 ml Balance -2500 ml 120 ml Exam Neck: supple Respiratory: clear to auscultation Cardiovascular: regular rate and rhythm Gastrointestinal: nl liver, spleen, non-tender, soft Musculoskeletal: nl extremities to inspection Results Result Diagram: 03/17/17 0545 03/17/17 0545 Results 24 hrs Laboratory Tests Test 03/17/17 00:40 03/17/17 05:45 03/17/17 07:59 03/17/17 11:57 Creatine Kinase 189 177 Creatine Kinase Index 1.6 1.7 Creatinine Kinase MB (Mass) 3.10 H 2.98 H Troponin I 0.014 0.028 White Blood Count 4.5 L Red Blood Count 3.52 L Hemoglobin 11.8 L Hematocrit 35.9 L Mean Corpuscular Volume 102.0 H Mean Corpuscular Hemoglobin 33.5 H Mean Corpuscular Hemoglobin Concent 32.9 Red Cell Distribution Width 14.6 H Platelet Count 157 Mean Platelet Volume 9.9 Neutrophils % 66.5 Lymphocytes % 18.3 Monocytes % 12.2 H Eosinophils % 2.2 Basophils % 0.4 Nucleated Red Blood Cells % 0.0 Neutrophils # 3.0 Lymphocytes # 0.8 Monocytes # 0.6 Eosinophils # 0.1 Basophils # 0.0 Nucleated Red Blood Cells # 0.0 Sodium Level 134 L Potassium Level 3.8 Chloride Level 103 # Carbon Dioxide Level 23 Anion Gap 12 Blood Urea Nitrogen 39 H Creatinine 3.61 H Glucose Level 194 Calcium Level 8.4 Total Bilirubin 0.2 Direct Bilirubin 0.00 Indirect Bilirubin 0.2 Aspartate Amino Transf (AST/SGOT) 40 Alanine Aminotransferase (ALT/SGPT) 38 Alkaline Phosphatase 171 H Total Protein 6.4 Albumin 2.9 L Globulin 3.50 H Albumin/Globulin Ratio 0.82 Bedside Glucose 162 186 Test 03/17/17 17:07 03/17/17 20:39 Bedside Glucose 277 H 236 H Medications Medications Current Medications Aspirin (Aspirin) 81 mg DAILY PO Last administered on 03/17/17 08:37; Admin Dose 81 MG; Start 03/16/17 at 09:00 Carvedilol (Coreg) 12.5 mg BID PO Last administered on 03/17/17 20:36; Admin Dose 12.5 MG; Start 03/16/17 at 00:00 Sodium Bicarbonate (Sodium Bicarbonate Tab) 650 mg DAILY PO Last administered on 03/17/17 08:37; Admin Dose 650 MG; Start 03/16/17 at 09:00 Folic Acid (Folic Acid) 1 mg DAILY PO Last administered on 03/17/17 08:43; Admin Dose 1 MG; Start 03/16/17 at 09:00 Ferrous Sulfate (Ferrous Sulfate (Ec)) 325 mg DAILY PO Last administered on 12:12; Admin Dose 325 MG; Start 03/16/17 at 09:00 Multivit/Ca Carb/ B Cmplx/FA/Prenat (Becky-Maddy) 1 tab DAILY PO Last administered on 03/17/17 08:37; Admin Dose 1 TAB; Start 03/16/17 at 09:00 Pregabalin 25 mg 25 mg PRN PRN PO PAIN AND/OR INFLAMMATION Last administered on 03/17/17 21:40; Admin Dose 25 MG; Start 03/16/17 at 00:00 Sodium Chloride (NS) 1,000 ml @ 0 mls/hr Q0M IV ; Start 03/16/17 at 01:30 Ondansetron HCl (Zofran Inj) 4 mg Q4H PRN IV NAUSEA AND/OR VOMITING; Start at 01:30 Diagnostic Test (Pha) (Accu-Chek) 1 ea 02 XX Last administered on 03/16/17 02: 00; Admin Dose 1 EA; Start 03/16/17 at 02:00 Miscellaneous Information 1 ea NOTE XX ; Start 03/16/17 at 02:00 Glucose (Glutose) 15 gm Q15M PRN PO DECREASED GLUCOSE; Start 03/16/17 at 02:00 Glucose (Glutose) 22.5 gm Q15M PRN PO DECREASED GLUCOSE; Start 03/16/17 at 02: 00 Dextrose (D50w Syringe) 25 ml Q15M PRN IV DECREASED GLUCOSE; Start 03/16/17 at 02:00 Dextrose (D50w Syringe) 50 ml Q15M PRN IV DECREASED GLUCOSE; Start 03/16/17 at 02:00 Glucagon (Glucagen) 1 mg Q15M PRN IM DECREASED GLUCOSE; Start 03/16/17 at 02:00 Glucose (Glutose) 15 gm Q15M PRN BUCCAL DECREASED GLUCOSE; Start 03/16/17 at 02 :00 Clonidine (Catapres) 0.1 mg Q4H PRN PO htn Last administered on 03/16/17 21:06 ; Admin Dose 0.1 MG; Start 03/16/17 at 07:00 Hydralazine HCl (Apresoline) 10 mg Q6H PRN IV ELEVATED BLOOD PRESSURE Last administered on 03/16/17 23:01; Admin Dose 10 MG; Start 03/16/17 at 22:30 Acetaminophen (Tylenol Tab) 650 mg Q6H PRN PO PAIN AND OR ELEVATED TEMP Last administered on 03/17/17 12:12; Admin Dose 650 MG; Start 03/16/17 at 22:30 Hydralazine HCl (Apresoline) 25 mg Q8 PO Last administered on 03/17/17 23:05; Admin Dose 25 MG; Start 03/17/17 at 06:00 Isosorbide Dinitrate (Isordil) 10 mg TID PO Last administered on 03/17/17 20: 36; Admin Dose 10 MG; Start 03/17/17 at 09:00 CRISTA SHAHID MD March 17, 2017 23:45
[2017-03-18] VITALS (19 sets, daily range): BP systolic 105–156; BP diastolic 50–69; PULSE 62–70; RESP 17–24
[2017-03-18] MEDS: ACCU-CHEK XX SCH (02:29)
[2017-03-18] MEDS: INSULIN ASPART [NOVOLOG] 3 ML PEN SC SCH ×4 (08:00→22:19)
--- NOTE | 2017-03-18 08:10 | ECORPT ---
DATE OF SERVICE: PROCEDURE: Lexiscan Cardiolite stress test REQUESTING PHYSICIANS: Dr. Marsh and Dr. Barraza. REASON FOR EVALUATION: Chest pain. DESCRIPTION OF PROCEDURE: The patient is status post and injection. Blood pressure was ___. Shows abnormal EKG at baseline with bundle branch blocks and pulmonary pattern. There were no ischemic c hanges with injection. The imaging portion is dictated separately from this. Dictated By: SOFIA BERG MD ML/RONNIE Conf#: [id number] DID#: [id number]
[2017-03-18] MEDS: ASPIRIN 81 MG TAB PO SCH (08:31)
[2017-03-18] MEDS: FERROUS SULFATE (EC) 325 MG TAB PO SCH (08:32)
[2017-03-18] MEDS: FOLIC ACID 1 MG TAB PO SCH (08:32)
[2017-03-18] MEDS: MULTIVIT/CA CARB/B CMPLX/FA TAB PO SCH (08:33)
[2017-03-18] MEDS: ISOSORBIDE DINITRATE 10 MG TAB PO SCH ×3 (08:33→22:13)
[2017-03-18] MEDS: NA BICARBONATE 650 MG TAB PO SCH (08:33)
[2017-03-18] MEDS: ACETAMINOPHEN 325 MG TAB PO PRN (10:53)
--- NOTE | 2017-03-18 18:53 | CONS ---
Date/Time of Note Date/Time of Note DATE: 03/18/17 TIME: 18:40 Assessment/Plan Assessment/Plan Chief Complaint/Hosp Course IMPRESSION: 1. Chest pain, assess for acute coronary syndrome with negative troponins x2 at this time with poorly described symptoms. NL EF/no ischemia by Lexiscan this admit 2. Abnormal electrocardiogram with right bundle block pattern secondary to repolarization abnormalities. 3. Premature ventricular contractions on electrocardiogram. 4. Shortness of breath, assess for congestive heart failure. 5. End-stage renal disease on hemodialysis. 6. Hyponatremia. 7. Possible diabetes mellitus on medications. PLan: -Continue coreg/hydralazine/isordil and follow BP closely -Consider PPI -For recurrent chest pain will reccomend cardiac cath and patient is scheduled for outpatient [facility] 03/26/17 Problems: Consultation Date/Type/Reason Admit Date/Time March 16, 2017 at 11:28 Initial Consult Date 03/16/17 Type of Consultation: Cardiology Reason for Consultation Chest pain Referring Provider: CRISTA SHAHID Exam/Review of Systems Vital Signs Vitals Vital Signs Date Time Temp Pulse Resp B/P Pulse Ox O2 Delivery O2 Flow Rate FiO2 03/18/17 17:50 67 03/18/17 15:57 98.0 20 118/58 97 03/17/17 20:01 Nasal Cannula 2.0 Intake and Output 03/17/17 03/17/17 03/18/17 15:00 23:00 07:00 Intake Total 750 ml 120 ml Balance 750 ml 120 ml Exam Review of Systems: CONSTITUTIONAL: No fevers, chills. PULMONARY: No sob CARDIOVASCULAR: No chest pain/palpitations GASTROINTESTINAL: No nausea/vomiting. GENITOURINARY: No hematuria/dysuria. MUSCULOSKELETAL: No myagias/arthalgias. PSYCHIATRIC: The patient denies depression. NEUROLOGIC: No weakness Constitutional: alert Psych: no complaints Head: normocephalic ENMT: mucosa pink and moist Neck: supple Respiratory: diminished breath sounds Cardiovascular: regular rate and rhythm Gastrointestinal: non-tender, soft Musculoskeletal: muscle tone (normal) Extremities: edema (none) Neurological: other (No focal deficits) Results Result Diagram: 03/17/17 0545 03/17/17 0545 Results 24 hrs Laboratory Tests Test 03/17/17 20:39 03/18/17 02:28 03/18/17 08:29 03/18/17 12:22 Bedside Glucose 236 H 137 107 203 Test 03/18/17 17:22 Bedside Glucose 204 Medications Medications Current Medications Aspirin (Aspirin) 81 mg DAILY PO Last administered on 03/18/17 08:31; Admin Dose 81 MG; Start 03/16/17 at 09:00 Carvedilol (Coreg) 12.5 mg BID PO Last administered on 03/17/17 20:36; Admin Dose 12.5 MG; Start 03/16/17 at 00:00 Sodium Bicarbonate (Sodium Bicarbonate Tab) 650 mg DAILY PO Last administered on 03/18/17 08:33; Admin Dose 650 MG; Start 03/16/17 at 09:00 Folic Acid (Folic Acid) 1 mg DAILY PO Last administered on 03/18/17 08:32; Admin Dose 1 MG; Start 03/16/17 at 09:00 Ferrous Sulfate (Ferrous Sulfate (Ec)) 325 mg DAILY PO Last administered on 08:32; Admin Dose 325 MG; Start 03/16/17 at 09:00 Multivit/Ca Carb/ B Cmplx/FA/Prenat (Becky-Maddy) 1 tab DAILY PO Last administered on 03/18/17 08:33; Admin Dose 1 TAB; Start 03/16/17 at 09:00 Pregabalin 25 mg 25 mg PRN PRN PO PAIN AND/OR INFLAMMATION Last administered on 03/17/17 21:40; Admin Dose 25 MG; Start 03/16/17 at 00:00 Sodium Chloride (NS) 1,000 ml @ 0 mls/hr Q0M IV ; Start 03/16/17 at 01:30 Ondansetron HCl (Zofran Inj) 4 mg Q4H PRN IV NAUSEA AND/OR VOMITING; Start at 01:30 Diagnostic Test (Pha) (Accu-Chek) 1 ea 02 XX Last administered on 03/18/17 02: 29; Admin Dose 1 EA; Start 03/16/17 at 02:00 Miscellaneous Information 1 ea NOTE XX ; Start 03/16/17 at 02:00 Glucose (Glutose) 15 gm Q15M PRN PO DECREASED GLUCOSE; Start 03/16/17 at 02:00 Glucose (Glutose) 22.5 gm Q15M PRN PO DECREASED GLUCOSE; Start 03/16/17 at 02: 00 Dextrose (D50w Syringe) 25 ml Q15M PRN IV DECREASED GLUCOSE; Start 03/16/17 at 02:00 Dextrose (D50w Syringe) 50 ml Q15M PRN IV DECREASED GLUCOSE; Start 03/16/17 at 02:00 Glucagon (Glucagen) 1 mg Q15M PRN IM DECREASED GLUCOSE; Start 03/16/17 at 02:00 Glucose (Glutose) 15 gm Q15M PRN BUCCAL DECREASED GLUCOSE; Start 03/16/17 at 02 :00 Clonidine (Catapres) 0.1 mg Q4H PRN PO htn Last administered on 03/16/17 21:06 ; Admin Dose 0.1 MG; Start 03/16/17 at 07:00 Hydralazine HCl (Apresoline) 10 mg Q6H PRN IV ELEVATED BLOOD PRESSURE Last administered on 03/16/17 23:01; Admin Dose 10 MG; Start 03/16/17 at 22:30 Acetaminophen (Tylenol Tab) 650 mg Q6H PRN PO PAIN AND OR ELEVATED TEMP Last administered on 03/18/17 10:53; Admin Dose 650 MG; Start 03/16/17 at 22:30 Hydralazine HCl (Apresoline) 25 mg Q8 PO Last administered on 03/17/17 23:05; Admin Dose 25 MG; Start 03/17/17 at 06:00 Isosorbide Dinitrate (Isordil) 10 mg TID PO Last administered on 03/18/17 12: 24; Admin Dose 10 MG; Start 03/17/17 at 09:00 MICHELLE DRUMMOND March 18, 2017 18:50
[2017-03-18] MEDS: PREGABALIN 25 MG CAP PO PRN (22:13)
--- NOTE | 2017-03-18 23:52 | PN ---
Date/Time of Note Date/Time of Note DATE: 03/18/17 TIME: 23:51 Assessment/Plan VTE Prophylaxis VTE Prophylaxis Intervention: other Assessment/Plan Chief Complaint/Hosp Course IMPRESSION: 1. ____ ischemic heart disease, dyspepsia, rule out gastroesophageal reflux disease. 2. End-stage renal disease. 2. Hypertension. 3. Diabetes mellitus. 4. Anemia. 5. Hypernatremia. 6. Hypoalbuminemia. PLAN PER CARDIO HD AM Problems: Subjective 24 Hr Interval Summary Gastrointestinal: no complaints Genitourinary: no complaints Musculoskeletal: no complaints Exam/Review of Systems Vital Signs Vitals Vital Signs Date Time Temp Pulse Resp B/P Pulse Ox O2 Delivery O2 Flow Rate FiO2 03/18/17 20:32 98.3 68 19 156/69 96 03/17/17 20:01 Nasal Cannula 2.0 Intake and Output 03/17/17 03/17/17 03/18/17 15:00 23:00 07:00 Intake Total 750 ml 120 ml Balance 750 ml 120 ml Exam Cardiovascular: regular rate and rhythm Musculoskeletal: nl extremities to inspection Extremities: normal pulses Results Result Diagram: 03/17/17 0545 03/17/17 0545 Results 24 hrs Laboratory Tests Test 03/18/17 02:28 03/18/17 08:29 03/18/17 12:22 03/18/17 17:22 Bedside Glucose 137 107 203 204 Test 03/18/17 22:11 Bedside Glucose 212 Medications Medications Current Medications Aspirin (Aspirin) 81 mg DAILY PO Last administered on 03/18/17 08:31; Admin Dose 81 MG; Start 03/16/17 at 09:00 Carvedilol (Coreg) 12.5 mg BID PO Last administered on 03/18/17 22:13; Admin Dose 12.5 MG; Start 03/16/17 at 00:00 Sodium Bicarbonate (Sodium Bicarbonate Tab) 650 mg DAILY PO Last administered on 03/18/17 08:33; Admin Dose 650 MG; Start 03/16/17 at 09:00 Folic Acid (Folic Acid) 1 mg DAILY PO Last administered on 03/18/17 08:32; Admin Dose 1 MG; Start 03/16/17 at 09:00 Ferrous Sulfate (Ferrous Sulfate (Ec)) 325 mg DAILY PO Last administered on 08:32; Admin Dose 325 MG; Start 03/16/17 at 09:00 Multivit/Ca Carb/ B Cmplx/FA/Prenat (Becky-Maddy) 1 tab DAILY PO Last administered on 03/18/17 08:33; Admin Dose 1 TAB; Start 03/16/17 at 09:00 Pregabalin 25 mg 25 mg PRN PRN PO PAIN AND/OR INFLAMMATION Last administered on 03/18/17 22:13; Admin Dose 25 MG; Start 03/16/17 at 00:00 Sodium Chloride (NS) 1,000 ml @ 0 mls/hr Q0M IV ; Start 03/16/17 at 01:30 Ondansetron HCl (Zofran Inj) 4 mg Q4H PRN IV NAUSEA AND/OR VOMITING; Start at 01:30 Diagnostic Test (Pha) (Accu-Chek) 1 ea 02 XX Last administered on 03/18/17 02: 29; Admin Dose 1 EA; Start 03/16/17 at 02:00 Miscellaneous Information 1 ea NOTE XX ; Start 03/16/17 at 02:00 Glucose (Glutose) 15 gm Q15M PRN PO DECREASED GLUCOSE; Start 03/16/17 at 02:00 Glucose (Glutose) 22.5 gm Q15M PRN PO DECREASED GLUCOSE; Start 03/16/17 at 02: 00 Dextrose (D50w Syringe) 25 ml Q15M PRN IV DECREASED GLUCOSE; Start 03/16/17 at 02:00 Dextrose (D50w Syringe) 50 ml Q15M PRN IV DECREASED GLUCOSE; Start 03/16/17 at 02:00 Glucagon (Glucagen) 1 mg Q15M PRN IM DECREASED GLUCOSE; Start 03/16/17 at 02:00 Glucose (Glutose) 15 gm Q15M PRN BUCCAL DECREASED GLUCOSE; Start 03/16/17 at 02 :00 Clonidine (Catapres) 0.1 mg Q4H PRN PO htn Last administered on 03/16/17 21:06 ; Admin Dose 0.1 MG; Start 03/16/17 at 07:00 Hydralazine HCl (Apresoline) 10 mg Q6H PRN IV ELEVATED BLOOD PRESSURE Last administered on 03/16/17 23:01; Admin Dose 10 MG; Start 03/16/17 at 22:30 Acetaminophen (Tylenol Tab) 650 mg Q6H PRN PO PAIN AND OR ELEVATED TEMP Last administered on 03/18/17 10:53; Admin Dose 650 MG; Start 03/16/17 at 22:30 Hydralazine HCl (Apresoline) 25 mg Q8 PO Last administered on 03/18/17 22:13; Admin Dose 25 MG; Start 03/17/17 at 06:00 Isosorbide Dinitrate (Isordil) 10 mg TID PO Last administered on 03/18/17 22: 13; Admin Dose 10 MG; Start 03/17/17 at 09:00 CRISTA SHAHID MD March 18, 2017 23:52
[2017-03-19] VITALS (11 sets, daily range): BP systolic 104–160; BP diastolic 47–70; PULSE 62–72; RESP 17–20
--- NOTE | 2017-03-19 00:02 | CONS ---
DATE OF ADMISSION: 03/16/2017 DATE OF CONSULTATION: HISTORY OF PRESENT ILLNESS: The patient is a 71-year-old female with a history of end-stage renal d ismarye on dialysis, came to the ER complaining of abdominal pain and chest pain. The pain was diffu se, crampy, associated with nausea. She is also known to have diabetes mellitus. GI consult was ca lled in. When interrogated today, the patient denies any abdominal pain. No nausea, no vomiting, n o GI bleeding, no weight loss. REVIEW OF SYSTEMS: Otherwise negative. HOME MEDICATION: All reviewed. ALLERGIES: NONE. PAST MEDICAL HISTORY: History of hypertension. SOCIAL HISTORY: Does not smoke or drink. PHYSICAL EXAMINATION: GENERAL: Moderately built, nourished, not in distress. VITAL SIGNS: Stable. HEENT: Unremarkable. NECK: Supple. No thyromegaly, no lymphadenopathy. CARDIOVASCULAR: No murmur, gallop, or click. LUNGS: Clear. ABDOMEN: Benign. EXTREMITIES: No edema. CENTRAL NERVOUS SYSTEM: Grossly within normal limits. IMPRESSION: 1. Atypical chest pain. 2. Abdominal pain, which is resolved. 3. End-stage renal disease. 4. Diabetes mellitus. 5. Hypertension. 6. Anemia. 7. Hypoalbuminemia. 8. Mild elevation of alkaline phosphatase. PLAN: At this point, is to continue present care. Control the blood sugar. If the pain persists, then will start the patient on PPI and low dose of Reglan. Dictated By: EMMA MAO/RONNIE Conf#: [id number] DID#: [id number] CC: EMMA SANTAMARIA MD; CRISTA SHAHID MD;*EndCC*
[2017-03-19] MEDS: ACCU-CHEK XX SCH (02:00)
[2017-03-19] MEDS: INSULIN ASPART [NOVOLOG] 3 ML PEN SC SCH ×3 (08:00→18:24)
[2017-03-19] MEDS: FERROUS SULFATE (EC) 325 MG TAB PO SCH (09:32)
[2017-03-19] MEDS: NA BICARBONATE 650 MG TAB PO SCH (09:32)
[2017-03-19] MEDS: FOLIC ACID 1 MG TAB PO SCH (09:32)
[2017-03-19] MEDS: MULTIVIT/CA CARB/B CMPLX/FA TAB PO SCH (09:32)
[2017-03-19] MEDS: ASPIRIN 81 MG TAB PO SCH (09:32)
[2017-03-19] MEDS: ISOSORBIDE DINITRATE 10 MG TAB PO SCH ×2 (09:34→13:19)
--- NOTE | 2017-03-19 11:04 | CONS ---
Date/Time of Note Date/Time of Note DATE: 03/19/17 TIME: 11:04 Assessment/Plan Assessment/Plan Additional Assessment/Plan IMPRESSION: 1. Atypical chest pain. 2. Abdominal pain, which is resolved. 3. End-stage renal disease. 4. Diabetes mellitus. 5. Hypertension. 6. Anemia. 7. Hypoalbuminemia. 8. Mild elevation of alkaline phosphatase. PLAN: At this point, is to continue present care. Control the blood sugar. If the pain persists, then will start the patient on PPI and low dose of Reglan. Consultation Date/Type/Reason Admit Date/Time March 16, 2017 at 11:28 Initial Consult Date Type of Consultation: Cardiology Referring Provider: CRISTA SHAHID MD 24 HR Interval Summary Constitutional: improved, no complaints Exam/Review of Systems Vital Signs Vitals Vital Signs Date Time Temp Pulse Resp B/P Pulse Ox O2 Delivery O2 Flow Rate FiO2 03/19/17 08:30 63 03/19/17 07:29 98.2 20 104/47 98 03/18/17 20:00 Nasal Cannula 2.0 Intake and Output 03/18/17 03/18/17 03/19/17 14:59 22:59 06:59 Intake Total 950 ml Output Total 2500 ml Balance -1550 ml Exam Constitutional: alert, oriented, well developed Psych: nl mood/affect, no complaints Head: atraumatic, normocephalic Eyes: EOMI, PERRL, nl conjunctiva, nl lids, nl sclera ENMT: nl external ears & nose, nl lips & teeth, nl nasal mucosa & septum Neck: non-tender, supple Respiratory: clear to auscultation, normal air movement Cardiovascular: nl pulses, regular rate and rhythm Gastrointestinal: nl liver, spleen, non-tender, soft Musculoskeletal: nl extremities to inspection, nl gait and stance Extremities: normal pulses Neurological: PUBLIC SAFETY DISPATCHER II-XII intact, nl mental status, nl speech, nl strength Skin: nl turgor, No rash or lesions Lymph: nl lymph nodes Results Result Diagram: 03/17/17 0545 03/17/17 0545 Results 24 hrs Laboratory Tests Test 03/18/17 12:22 03/18/17 17:22 03/18/17 22:11 03/19/17 02:01 Bedside Glucose 203 204 212 175 Test 03/19/17 07:57 Bedside Glucose 111 Medications Medications Current Medications Aspirin (Aspirin) 81 mg DAILY PO Last administered on 03/19/17 09:32; Admin Dose 81 MG; Start 03/16/17 at 09:00 Carvedilol (Coreg) 12.5 mg BID PO Last administered on 03/19/17 09:33; Admin Dose 12.5 MG; Start 03/16/17 at 00:00 Sodium Bicarbonate (Sodium Bicarbonate Tab) 650 mg DAILY PO Last administered on 03/19/17 09:32; Admin Dose 650 MG; Start 03/16/17 at 09:00 Folic Acid (Folic Acid) 1 mg DAILY PO Last administered on 03/19/17 09:32; Admin Dose 1 MG; Start 03/16/17 at 09:00 Ferrous Sulfate (Ferrous Sulfate (Ec)) 325 mg DAILY PO Last administered on 09:32; Admin Dose 325 MG; Start 03/16/17 at 09:00 Multivit/Ca Carb/ B Cmplx/FA/Prenat (Becky-Maddy) 1 tab DAILY PO Last administered on 03/19/17 09:32; Admin Dose 1 TAB; Start 03/16/17 at 09:00 Pregabalin 25 mg 25 mg PRN PRN PO PAIN AND/OR INFLAMMATION Last administered on 03/18/17 22:13; Admin Dose 25 MG; Start 03/16/17 at 00:00 Sodium Chloride (NS) 1,000 ml @ 0 mls/hr Q0M IV ; Start 03/16/17 at 01:30 Ondansetron HCl (Zofran Inj) 4 mg Q4H PRN IV NAUSEA AND/OR VOMITING; Start at 01:30 Diagnostic Test (Pha) (Accu-Chek) 1 ea 02 XX Last administered on 03/18/17 02: 29; Admin Dose 1 EA; Start 03/16/17 at 02:00 Miscellaneous Information 1 ea NOTE XX ; Start 03/16/17 at 02:00 Glucose (Glutose) 15 gm Q15M PRN PO DECREASED GLUCOSE; Start 03/16/17 at 02:00 Glucose (Glutose) 22.5 gm Q15M PRN PO DECREASED GLUCOSE; Start 03/16/17 at 02: 00 Dextrose (D50w Syringe) 25 ml Q15M PRN IV DECREASED GLUCOSE; Start 03/16/17 at 02:00 Dextrose (D50w Syringe) 50 ml Q15M PRN IV DECREASED GLUCOSE; Start 03/16/17 at 02:00 Glucagon (Glucagen) 1 mg Q15M PRN IM DECREASED GLUCOSE; Start 03/16/17 at 02:00 Glucose (Glutose) 15 gm Q15M PRN BUCCAL DECREASED GLUCOSE; Start 03/16/17 at 02 :00 Clonidine (Catapres) 0.1 mg Q4H PRN PO htn Last administered on 03/16/17 21:06 ; Admin Dose 0.1 MG; Start 03/16/17 at 07:00 Hydralazine HCl (Apresoline) 10 mg Q6H PRN IV ELEVATED BLOOD PRESSURE Last administered on 03/16/17 23:01; Admin Dose 10 MG; Start 03/16/17 at 22:30 Acetaminophen (Tylenol Tab) 650 mg Q6H PRN PO PAIN AND OR ELEVATED TEMP Last administered on 03/18/17 10:53; Admin Dose 650 MG; Start 03/16/17 at 22:30 Hydralazine HCl (Apresoline) 25 mg Q8 PO Last administered on 03/19/17 06:06; Admin Dose 25 MG; Start 03/17/17 at 06:00 Isosorbide Dinitrate (Isordil) 10 mg TID PO Last administered on 03/19/17 09: 34; Admin Dose 10 MG; Start 03/17/17 at 09:00 EMMA SANTAMARIA MD March 19, 2017 11:04
--- NOTE | 2017-03-19 15:20 | PDOCDIS ---
Discharge Instructions CONDITION Patient Condition: Stable HOME CARE INSTRUCTIONS: Special Diet: RENAL DIET ACTIVITY: Activity Restrictions: Slowly Increase Activity FOLLOW UP/APPOINTMENTS Appointments f/u dr hurtado [address] marion [address] acosta 2 wks CRISTA HURTADO MD March 19, 2017 15:20
[2017-03-19] MEDS ORDERED: ISOS10TA2 PO (15:22)
--- NOTE | 2017-03-19 17:42 | CONS ---
Date/Time of Note Date/Time of Note DATE: 03/19/17 TIME: 17:40 Assessment/Plan Assessment/Plan Chief Complaint/Hosp Course IMPRESSION: 1. Chest pain, assess for acute coronary syndrome with negative troponins x2 at this time with poorly described symptoms. NL EF/no ischemia by Lexiscan this admit 2. Abnormal electrocardiogram with right bundle block pattern secondary to repolarization abnormalities. 3. Premature ventricular contractions on electrocardiogram. 4. Shortness of breath, assess for congestive heart failure. 5. End-stage renal disease on hemodialysis. 6. Hyponatremia. 7. Possible diabetes mellitus on medications. PLan: -Continue coreg/hydralazine/isordil and follow BP closely with possible need for further uptitration -Consider PPI -For recurrent chest pain will reccomend cardiac cath and patient is scheduled for outpatient [facility] 03/26/17 -D/C planning if remains asymptomatic with close outpatient f/u Problems: Consultation Date/Type/Reason Admit Date/Time March 16, 2017 at 11:28 Initial Consult Date 03/16/17 Type of Consultation: Cardiology Reason for Consultation chest pain Referring Provider: CRISTA SHAHID MD Exam/Review of Systems Vital Signs Vitals Vital Signs Date Time Temp Pulse Resp B/P Pulse Ox O2 Delivery O2 Flow Rate FiO2 03/19/17 16:18 62 03/19/17 15:42 97.8 20 134/62 98 03/18/17 20:00 Nasal Cannula 2.0 Intake and Output 03/18/17 03/18/17 03/19/17 14:59 22:59 06:59 Intake Total 950 ml Output Total 2500 ml Balance -1550 ml Exam Review of Systems: CONSTITUTIONAL: No fevers, chills. PULMONARY: No sob CARDIOVASCULAR: No chest pain/palpitations GASTROINTESTINAL: No nausea/vomiting. GENITOURINARY: No hematuria/dysuria. MUSCULOSKELETAL: No myagias/arthalgias. PSYCHIATRIC: The patient denies depression. NEUROLOGIC: No weakness Constitutional: alert, oriented Psych: no complaints Head: normocephalic ENMT: mucosa pink and moist Neck: jvd (8 cm water), supple Respiratory: clear to auscultation Cardiovascular: regular rate and rhythm Gastrointestinal: non-tender, soft Musculoskeletal: muscle tone (normal) Neurological: other (No focal deficits) Results Result Diagram: 03/17/1745 03/17/17 0545 Results 24 hrs Laboratory Tests Test 03/18/17 22:11 03/19/17 02:01 03/19/17 07:57 03/19/17 12:13 Bedside Glucose 212 175 111 281 H Test 03/19/17 13:27 03/19/17 17:33 Bedside Glucose 327 H 182 Medications Medications Current Medications Aspirin (Aspirin) 81 mg DAILY PO Last administered on 03/19/17 09:32; Admin Dose 81 MG; Start 03/16/17 at 09:00 Carvedilol (Coreg) 12.5 mg BID PO Last administered on 03/19/17 09:33; Admin Dose 12.5 MG; Start 03/16/17 at 00:00 Sodium Bicarbonate (Sodium Bicarbonate Tab) 650 mg DAILY PO Last administered on 03/19/17 09:32; Admin Dose 650 MG; Start 03/16/17 at 09:00 Folic Acid (Folic Acid) 1 mg DAILY PO Last administered on 03/19/17 09:32; Admin Dose 1 MG; Start 03/16/17 at 09:00 Ferrous Sulfate (Ferrous Sulfate (Ec)) 325 mg DAILY PO Last administered on 09:32; Admin Dose 325 MG; Start 03/16/17 at 09:00 Multivit/Ca Carb/ B Cmplx/FA/Prenat (Becky-Maddy) 1 tab DAILY PO Last administered on 03/19/17 09:32; Admin Dose 1 TAB; Start 03/16/17 at 09:00 Pregabalin 25 mg 25 mg PRN PRN PO PAIN AND/OR INFLAMMATION Last administered on 03/18/17 22:13; Admin Dose 25 MG; Start 03/16/17 at 00:00 Sodium Chloride (NS) 1,000 ml @ 0 mls/hr Q0M IV ; Start 03/16/17 at 01:30 Ondansetron HCl (Zofran Inj) 4 mg Q4H PRN IV NAUSEA AND/OR VOMITING; Start at 01:30 Diagnostic Test (Pha) (Accu-Chek) 1 ea 02 XX Last administered on 03/18/17 02: 29; Admin Dose 1 EA; Start 03/16/17 at 02:00 Miscellaneous Information 1 ea NOTE XX ; Start 03/16/17 at 02:00 Glucose (Glutose) 15 gm Q15M PRN PO DECREASED GLUCOSE; Start 03/16/17 at 02:00 Glucose (Glutose) 22.5 gm Q15M PRN PO DECREASED GLUCOSE; Start 03/16/17 at 02: 00 Dextrose (D50w Syringe) 25 ml Q15M PRN IV DECREASED GLUCOSE; Start 03/16/17 at 02:00 Dextrose (D50w Syringe) 50 ml Q15M PRN IV DECREASED GLUCOSE; Start 03/16/17 at 02:00 Glucagon (Glucagen) 1 mg Q15M PRN IM DECREASED GLUCOSE; Start 03/16/17 at 02:00 Glucose (Glutose) 15 gm Q15M PRN BUCCAL DECREASED GLUCOSE; Start 03/16/17 at 02 :00 Clonidine (Catapres) 0.1 mg Q4H PRN PO htn Last administered on 03/16/17 21:06 ; Admin Dose 0.1 MG; Start 03/16/17 at 07:00 Hydralazine HCl (Apresoline) 10 mg Q6H PRN IV ELEVATED BLOOD PRESSURE Last administered on 03/16/17 23:01; Admin Dose 10 MG; Start 03/16/17 at 22:30 Acetaminophen (Tylenol Tab) 650 mg Q6H PRN PO PAIN AND OR ELEVATED TEMP Last administered on 03/18/17 10:53; Admin Dose 650 MG; Start 03/16/17 at 22:30 Hydralazine HCl (Apresoline) 25 mg Q8 PO Last administered on 03/19/17 13:29; Admin Dose 25 MG; Start 03/17/17 at 06:00 Isosorbide Dinitrate (Isordil) 10 mg TID PO Last administered on 03/19/17 13: 19; Admin Dose 10 MG; Start 03/17/17 at 09:00 MICHELLE DRUMMOND March 19, 2017 17:42
--- NOTE | 2017-03-19 19:09 | PN ---
Date/Time of Note Date/Time of Note DATE: 03/19/17 TIME: 19:08 Assessment/Plan VTE Prophylaxis VTE Prophylaxis Intervention: other Lines/Catheters IV Catheter Type (from [facility]): [place] Assessment/Plan Chief Complaint/Hosp Course IMPRESSION: 1. ischemic heart disease, dyspepsia, rule out gastroesophageal reflux disease. 2. End-stage renal disease. 2. Hypertension. 3. Diabetes mellitus. 4. Anemia. 5. Hypernatremia. 6. Hypoalbuminemia. PLAN PER CARDIO HOME Problems: Subjective 24 Hr Interval Summary Respiratory: no complaints Cardiovascular: no complaints Gastrointestinal: no complaints Exam/Review of Systems Vital Signs Vitals Vital Signs Date Time Temp Pulse Resp B/P Pulse Ox O2 Delivery O2 Flow Rate FiO2 03/19/17 16:18 62 03/19/17 15:42 97.8 20 134/62 98 03/18/17 20:00 Nasal Cannula 2.0 Intake and Output 03/18/17 03/18/17 03/19/17 15:00 23:00 07:00 Intake Total 950 ml Output Total 2500 ml Balance -1550 ml Exam Respiratory: clear to auscultation Cardiovascular: regular rate and rhythm Gastrointestinal: soft Musculoskeletal: nl extremities to inspection Results Result Diagram: 03/17/17 0545 03/17/17 0545 Results 24 hrs Laboratory Tests Test 03/18/17 22:11 03/19/17 02:01 03/19/17 07:57 03/19/17 12:13 Bedside Glucose 212 175 111 281 H Test 03/19/17 13:27 03/19/17 17:33 Bedside Glucose 327 H 182 Medications Medications Current Medications Aspirin (Aspirin) 81 mg DAILY PO Last administered on 03/19/17 09:32; Admin Dose 81 MG; Start 03/16/17 at 09:00 Carvedilol (Coreg) 12.5 mg BID PO Last administered on 03/19/17 09:33; Admin Dose 12.5 MG; Start 03/16/17 at 00:00 Sodium Bicarbonate (Sodium Bicarbonate Tab) 650 mg DAILY PO Last administered on 03/19/17 09:32; Admin Dose 650 MG; Start 03/16/17 at 09:00 Folic Acid (Folic Acid) 1 mg DAILY PO Last administered on 03/19/17 09:32; Admin Dose 1 MG; Start 03/16/17 at 09:00 Ferrous Sulfate (Ferrous Sulfate (Ec)) 325 mg DAILY PO Last administered on 09:32; Admin Dose 325 MG; Start 03/16/17 at 09:00 Multivit/Ca Carb/ B Cmplx/FA/Prenat (Becky-Maddy) 1 tab DAILY PO Last administered on 03/19/17 09:32; Admin Dose 1 TAB; Start 03/16/17 at 09:00 Pregabalin 25 mg 25 mg PRN PRN PO PAIN AND/OR INFLAMMATION Last administered on 03/18/17 22:13; Admin Dose 25 MG; Start 03/16/17 at 00:00 Sodium Chloride (NS) 1,000 ml @ 0 mls/hr Q0M IV ; Start 03/16/17 at 01:30 Ondansetron HCl (Zofran Inj) 4 mg Q4H PRN IV NAUSEA AND/OR VOMITING; Start at 01:30 Diagnostic Test (Pha) (Accu-Chek) 1 ea 02 XX Last administered on 03/18/17 02: 29; Admin Dose 1 EA; Start 03/16/17 at 02:00 Miscellaneous Information 1 ea NOTE XX ; Start 03/16/17 at 02:00 Glucose (Glutose) 15 gm Q15M PRN PO DECREASED GLUCOSE; Start 03/16/17 at 02:00 Glucose (Glutose) 22.5 gm Q15M PRN PO DECREASED GLUCOSE; Start 03/16/17 at 02: 00 Dextrose (D50w Syringe) 25 ml Q15M PRN IV DECREASED GLUCOSE; Start 03/16/17 at 02:00 Dextrose (D50w Syringe) 50 ml Q15M PRN IV DECREASED GLUCOSE; Start 03/16/17 at 02:00 Glucagon (Glucagen) 1 mg Q15M PRN IM DECREASED GLUCOSE; Start 03/16/17 at 02:00 Glucose (Glutose) 15 gm Q15M PRN BUCCAL DECREASED GLUCOSE; Start 03/16/17 at 02 :00 Clonidine (Catapres) 0.1 mg Q4H PRN PO htn Last administered on 03/16/17 21:06 ; Admin Dose 0.1 MG; Start 03/16/17 at 07:00 Hydralazine HCl (Apresoline) 10 mg Q6H PRN IV ELEVATED BLOOD PRESSURE Last administered on 03/16/17 23:01; Admin Dose 10 MG; Start 03/16/17 at 22:30 Acetaminophen (Tylenol Tab) 650 mg Q6H PRN PO PAIN AND OR ELEVATED TEMP Last administered on 03/18/17 10:53; Admin Dose 650 MG; Start 03/16/17 at 22:30 Hydralazine HCl (Apresoline) 25 mg Q8 PO Last administered on 03/19/17 13:29; Admin Dose 25 MG; Start 03/17/17 at 06:00 Isosorbide Dinitrate (Isordil) 10 mg TID PO Last administered on 03/19/17 13: 19; Admin Dose 10 MG; Start 03/17/17 at 09:00 CRISTA SHAHID MD March 19, 2017 19:09
== END 2017-03-19 20:35 | disposition home or self-care (01) | DRG 391 ==
LOC: E/R 15:44 → MS4 20:18 → E/R 21:50 → OBSVTOIN 03-16 11:28
PROVIDERS: ADMIT Internal Medicine Nephrology; ATTEND Internal Medicine Nephrology
DX: R10.9 Unspecified abdominal pain (principal); N18.6 End stage renal disease; I13.2 Hypertensive heart and chronic kidney disease with heart failure and with stage 5 chronic kidney disease, or end stage renal disease; E11.22 Type 2 diabetes mellitus with diabetic chronic kidney disease; E87.1 Hypo-osmolality and hyponatremia; R07.9 Chest pain, unspecified; I49.3 Ventricular premature depolarization; I50.9 Heart failure, unspecified; I45.10 Unspecified right bundle-branch block; E88.09 Other disorders of plasma-protein metabolism, not elsewhere classified; R11.0 Nausea; K21.9 Gastro-esophageal reflux disease without esophagitis
CPT/HCPCS: 36415; 71010; 74176; 78452; 80053; 80061; 82550; 82553; 82962; 83690; 84484; 85025; 85610; 85730; 90935; 93005; 93017; 93306; 96374; 96375; G0378; A9500; A9505; J0360; J1170; J1815; J2405; J2765; J2785; J7040

== ENCOUNTER 2018-07-23 06:25 | Emergency (ER) | END 2018-07-23 08:28 | disposition home or self-care (01) ==

== ENCOUNTER 2018-07-25 20:26 | Inpatient (IN) | END 2018-07-30 14:25 | disposition home or self-care (01) | DRG 64 ==

== ENCOUNTER → 2018-08-12 | Outpatient (CLI) | END | disposition home or self-care (01) ==

== ENCOUNTER 2018-08-15 10:46 | Inpatient (IN) | END 2018-08-20 16:00 | disposition home or self-care (01) | DRG 871 ==

== ENCOUNTER 2019-01-26 04:28 | Inpatient (IN) | payer MEDICARE, OTHER ==
[~2019-01-26] VITALS: Ht 152.4 cm; Wt 61.6 kg
[2019-01-26] VITALS (40 sets, daily range): BP systolic 105–172; BP diastolic 54–99; PULSE 68–83; RESP 16–48; Ht 152.4 cm; Wt 61.6 kg
[~2019-01-26 04:28] MED LIST changes: +ALBU90AE INHALATION; -ASPI81TA3 PO; +ATOR10TA65 PO; +CALC667C PO; -CHOL2000 PO; +CIPR500T4 PO; -EPOE10003 SC; +FLUC100T39 PO; -FURO-109 PO; -GLIP-95 PO; +GLIP2.5T14 PO; +HYDR-3671 PO; +ISOS10TA2 PO; -ISOS40TA15 PO; +LINA5TAB PO; +METO10TA3 PO; -OMEP40CA6 PO; -SIMV40TA2 PO; -SMV40T PO; -SODI650T PO
--- NOTE | 2019-01-26 05:32 | ERD ---
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 She said it woke her from. Patient had previous episodes of this in the past has been told she been fluid overloaded. Recently discharged home for health course associated pneumonia. Denies fevers or chills. Denies cough. Says she has more shortness of breath when she lays flat. Denies any chest pain. Denies any other current complaints. Patient is a Thursday dialysis patient, and complet ed a full dialysis course 24 hours ago. ROS All systems reviewed and are negative except as per history of present illness. Medications Home Meds Active Scripts Hydralazine Hcl* (Apresoline*) 50 Mg Tab, 100 MG PO BID for 60 Days, TAB Prov:VENICE VAZ MD 08/20/18 Ciprofloxacin Hcl* (Ciprofloxacin Hcl*) 500 Mg Tablet, 500 MG PO DAILY for 7 Days, #14 TAB Prov:VENICE VAZ MD 08/20/18 Atorvastatin (Atorvastatin) 10 Mg Tablet, 5 MG PO QHS for 30 Days, TAB Prov:VENICE VAZ MD 08/20/18 Fluconazole* (Fluconazole*) 100 Mg Tablet, 100 MG PO DAILY for 10 Days, TAB Prov:MALA DAILEY 08/20/18 Albuterol Sulfate (Proair Respiclick) 90 Mcg Aer.pow.ba, 1 PUFF INHALATION Q4 PRN for SHORTNESS OF BREATH, #1 BOTTLE Prov:MALA DAILEY 08/20/18 Reported Medications Calcium Acetate* (Calcium Acetate*) 667 Mg Capsule, 667 MG PO BID WITH MEALS, #30 CAP 08/15/18 Glipizide XL* (Glipizide XL*) 2.5 Mg Tab.er.24, 2.5 MG PO DAILY, TAB 08/15/18 Linagliptin (TRADJENTA) 5 Mg Tablet, 5 MG PO DAILY, TAB 08/15/18 Hydralazine Hcl* (Hydralazine Hcl*) 25 Mg Tab, 75 MG PO BID, #90 TAB 08/15/18 Isosorbide Dinitrate* (Isordil*) 10 Mg Tablet, 20 MG PO BID, TAB 08/15/18 Carvedilol* (Coreg*) 12.5 Mg Tablet, 12.5 MG PO BID, #60 TAB 08/15/18 Metoclopramide Hcl* (Metoclopramide Hcl*) 10 Mg Tablet, 10 MG PO TID, TAB 03/15/17 Pregabalin* (Lyrica*) 25 Mg Capsule, 25 MG PO PRN for PAIN, CAP 07/18/16 Multivit/Ca Carb/B Cmplx/Fa* (Becky-Maddy*) 1 Tab Tab, 1 TAB PO DAILY, TAB 07/18/16 Dexlansoprazole (Dexilant) 60 Mg Cap.mp, 60 MG PO DAILY, #30 CAP 07/18/16 Ferrous Sulfate* (Ferrous Sulfate*) 325 Mg Tablet, 325 MG PO BID, TAB 11/22/14 Folic Acid* (Folic Acid*) 1 Mg Tablet, 1 MG PO DAILY, TAB 11/22/14 Allergies Allergies: Coded Allergies: No Known Allergy (Unverified , 08/15/18) PMhx/Soc History of Surgery: Yes (lap fany,c section, AV fistula left arm) Anesthesia Reaction: No Hx Neurological Disorder: No Hx Respiratory Disorders: Yes (pneumonia) Hx Cardiac Disorders: Yes (CHF, HTN) Hx Psychiatric Problems: No Hx Miscellaneous Medical Probl: Yes (KIDNEY FAILURE) Hx Alcohol Use: No Hx Substance Use: No Hx Tobacco Use: No Smoking Status: Never smoker Physical Exam Vitals Vital Signs Date Temp Pulse Resp B/P (MAP) Pulse Ox O2 O2 Flow FiO2 Time Delivery Rate 01/26/19 98.7 70 19 138/51 98 04:36 (80) 01/26/19 97.7 70 21 13/138 51 04:32 (97) Physical Exam Const: No acute distress Head: Atraumatic Eyes: Normal Conjunctiva ENT: Normal External Ears, Nose and Mouth. Neck: Full range of motion. No meningismus. Resp: Clear to auscultation bilaterally Cardio: Regular rate and rhythm, no murmurs Abd: Soft, non tender, non distended. Normal bowel sounds Skin: No petechiae or rashes Back: No midline or flank tenderness Ext: No cyanosis, or edema Neur: Awake and alert Psych: Normal Mood and Affect Result Diagram: 01/26/1944601/26/19446 Results 24 hrs Laboratory Tests Test 01/26/19 04:32 01/26/19 04:47 Blood Gas Specimen Source Blood arterial Arterial Blood Date Drawn 01/26/2019 5:05:25 AM Arterial Blood pH (Temp corrected) 7.499 Arterial Blood pCO2 (Temp correct) 34.9 mmhg Arterial Blood pO2 (Temp corrected) 91.0 mmHG Arterial Blood HCO3 26.5 mmol/L Arterial Blood Base Excess 3.5 mmol/L Arterial Blood Oxygen Saturation 96.8 mmHG Garrick Test ACCEPTAB Arterial Blood Gas Puncture Site Right Radial Arterial Blood Carboxyhemoglobin 0.3 % Arterial Blood Methemoglobin 0.2 % Blood Gas A-a O2 Differential 16.9 mmHg Oxyhemoglobin Percent 96.3 % Blood Gas Temperature 37.0 C Blood Gas Modality ROOM AIR FiO2 21.0 % Blood Gas Notified Whom AA Blood Gas Notified Time 01/26/2019 5:16:06 AM White Blood Count 6.5 10^3/ul Red Blood Count 3.36 10^6/ul Hemoglobin 10.9 g/dl Hematocrit 31.9 % Mean Corpuscular Volume 94.9 fl Mean Corpuscular Hemoglobin 32.4 pg Mean Corpuscular Hemoglobin Concent 34.2 g/dl Red Cell Distribution Width 14.1 % Platelet Count 258 10^3/UL Mean Platelet Volume 9.5 fl Immature Granulocytes % 0.500 % Neutrophils % 66.0 % Lymphocytes % 18.0 % Monocytes % 13.3 % Eosinophils % 1.7 % Basophils % 0.5 % Nucleated Red Blood Cells % 0.0 /100WBC Immature Granulocytes # 0.030 10^3/ul Neutrophils # 4.3 10^3/ul Lymphocytes # 1.2 10^3/ul Monocytes # 0.9 10^3/ul Eosinophils # 0.1 10^3/ul Basophils # 0.0 10^3/ul Nucleated Red Blood Cells # 0.0 10^3/ul Prothrombin Time 14.5 Sec Prothrombin Time Ratio 1.1 INR International Normalized Ratio 1.12 Activated Partial Thromboplast Time 40.3 Sec Sodium Level 128 mmol/L Potassium Level 5.0 mmol/L Chloride Level 86 mmol/L Carbon Dioxide Level 25 mmol/L Anion Gap 17 Blood Urea Nitrogen 40 mg/dl Creatinine 5.64 mg/dl Est Glomerular Filtrat Rate mL/min mL/min Glucose Level 229 mg/dl Lactic Acid Level 1.7 mmol/L Calcium Level 8.5 mg/dl Total Bilirubin 0.0 mg/dl Direct Bilirubin 0.00 mg/dl Indirect Bilirubin 0.0 mg/dl Aspartate Amino Transf (AST/SGOT) 31 IU/L Alanine Aminotransferase (ALT/SGPT) 16 IU/L Alkaline Phosphatase 201 IU/L Troponin I 0.014 ng/ml B-Type Natriuretic Peptide 39779 PG/ML Total Protein 7.1 g/dl Albumin 3.9 g/dl Globulin 3.20 g/dl Albumin/Globulin Ratio 1.21 Procedures/MDM EKG: Rate/Rhythm: [Normal Sinus Rhythm] QRS, ST, T-waves: [No changes consistent w/ acute ischemia] Impression: [No evidence of ischemia or arrhythmia] Chest X-ray 1V Interpreted by me: Soft Tissue: No acute abnormalities Bones: No acute abnormalities Mediastinum/Cardiac Silhouette/Lungs: Cardiomegaly. Increased interstitial fluid markings. Impression: CHF Medical decision making: Patient's heart failure symptoms is concerning for acute decompensation and will require inpatient workup and monitoring. Further w/u for ischemia, arrhythmia, PE or dissection will be deferred to the inpatient team. Accepting Care Team: Current data and ongoing care discussed. Time: 5:30 AM Primary Provider: Dr. Munroe who is on-call for Dr. Barraza Consulting: [XOXOXO] Outstanding Data: none Departure Diagnosis: Primary Impression: Shortness of breath Condition: Serious NORMADEYSI HernandesEdgardo Jan 26, 2019 05:32
[2019-01-26] MEDS ORDERED: ISOS20TA19 PO (08:55)
[2019-01-26] MEDS ORDERED: HYDR-3672 PO (08:56)
[2019-01-26] MEDS ORDERED: LYRI25 PO (08:58)
[2019-01-26] MEDS ORDERED: ONDA4TAB8 PO (08:58)
[2019-01-26] MEDS ORDERED: RANO500T2 PO (08:59)
[2019-01-26] MEDS ORDERED: CHOL100062 PO (09:01)
[2019-01-26] MEDS ORDERED: MONT10TA21 PO (09:01)
--- NOTE | 2019-01-26 10:08 | QN ---
Documentation Comment seen and examined VENICE VAZ MD Jan 26, 2019 10:08
[2019-01-26] MEDS ORDERED: glipiZIDE (XL) 2.5 MG TAB PO SCH (10:30)
[2019-01-26] MEDS ORDERED: NACL 0.9% 3 ML SYG IV SCH (10:30)
[2019-01-26] MEDS ORDERED: DOCUSATE SODIUM 100 MG CAP PO PRN (10:30)
[2019-01-26] MEDS ORDERED: ACETAMINOPHEN 325 MG TAB PO PRN (10:30)
[2019-01-26] MEDS ORDERED: ONDANSETRON 4 MG TAB PO PRN ×2 (10:30)
[2019-01-26] MEDS ORDERED: MIDAZOLAM 1 MG/ML 2 ML INJ ONE (11:11)
[2019-01-26] MEDS ORDERED: NITROGLYCERIN (IC) 100 MCG/ML INJ ONE (11:11)
[2019-01-26] MEDS ORDERED: HEPARIN 1000 UNITS/ML 10 ML INJ ONE (11:11)
[2019-01-26] MEDS ORDERED: FENTAnyl 50 MCG/ML VIAL ONE (11:11)
[2019-01-26] MEDS ORDERED: IODIXANOL LOCM 100 ML BTL ONE (11:11)
[2019-01-26] MEDS ORDERED: LIDOCAINE 1% (MDV) 20 ML INJ ONE (11:11)
[2019-01-26] MEDS ORDERED: VERAPAMIL 5 MG INJ ONE (11:11)
[2019-01-26] MEDS ORDERED: GLUCAGON 1 MG INJ IM PRN (11:30)
[2019-01-26] MEDS ORDERED: DEXTROSE 50% 50 ML SYRINGE IV PRN ×2 (11:30)
[2019-01-26] MEDS ORDERED: GLUCOSE GEL 15 GRAM TUBE BUCCAL PRN (11:30)
[2019-01-26] MEDS ORDERED: ACCU-CHEK XX SCH (11:30)
[2019-01-26] MEDS ORDERED: GLUCOSE GEL 15 GRAM TUBE PO PRN ×2 (11:30)
[2019-01-26] MEDS ORDERED: SOD CHLORIDE 0.9% 1,000 ML IV SCH (12:09)
--- NOTE | 2019-01-26 12:12 | SIPON ---
Date/Time of Note Date/Time of Note DATE: 01/26/19 TIME: 12:10 Operative Report Preoperative Diagnosis 1.chest pain 2.abnl mpi Postoperative Diagnosis 1.non-obstructive cad Operation/Procedure Performed 1.[facility] Surgeon see signature line assisted living manager 1.Ariel Anesthesia: moderate sedation Estimated blood loss: minimal Transfusion Required none Specimen none Grafts/Implants none Complications none MICHELLE DRUMMOND Jan 26, 2019 12:12
[2019-01-26] MEDS ORDERED: AL HYDROX/MG HYDROX/SIMETH 30 ML CUP PO PRN (12:30)
[2019-01-26] MEDS ORDERED: ONDANSETRON 4 MG INJ IV PRN (12:30)
[2019-01-26] MEDS ORDERED: morphine 2 MG INJ IV PRN (12:30)
--- NOTE | 2019-01-26 15:14 | HP ---
DATE OF ADMISSION: 01/26/2019 REASON FOR ADMISSION: Chest pain and shortness of breath. HISTORY OF PRESENTING ILLNESS: This is a 73-year-old female with past medical history of diabetes ty pe 2, hypertension, hyperlipidemia, history of CONTRIBUTION SOLICITOR bleed, end-stage renal disease on hemodialysis Thu, Thursday, Thursday, dyslipidemia, history of nonobstructive coronary artery disease, who presente d to the emergency department complaining of chest pain and shortness of breath. According to the silvana gunn, the patient has been going regularly to her dialysis center Thursday, Thursday, Thursday. Her l ast dialysis was on Thursday; however her dialysis session was cut short because the patient was having leg cramps. She is normally over 3 kg overweight. The patient had been having intermittently left- sided chest pain, pressure-like, sometimes sharp going to her back for past few weeks. The patient w ent along with her daughter to see Dr. Marsh. The patient took a dose of Ranexa in the morning and at night when she was sleeping all of a sudden she started feeling dizzy, weak and shortness of luis carlos th and was getting worse which made them come to the emergency department. On arrival to the ED, vit al signs show temperature of 97.5, pulse 76, respirations 20, blood pressure 139/66. Laboratories sh owed sodium of 128, potassium 5.0, chloride 86, bicarbonate 25, BUN of 40, creatinine 5.64. LFTs wit hin normal limit except alkaline phosphatase of 201. BNP 25,100. Troponin 0.014. The patient had C T of the head that showed no acute intracranial abnormality, complete opacification of right maxillar y sinus, atherosclerosis. She also had a chest x-ray that showed moderate cardiomegaly and congestiv e heart failure, bilateral small lung effusions with patchy consolidation of left base may be all due to atelectasis. The patient was admitted for further management. PAST MEDICAL HISTORY: 1. End-stage renal disease on hemodialysis Thursday, Thursday, Thursday. 2. Hypertension. 3. Hyperlipidemia. 4. Nonobstructive coronary artery disease. 5. GERD. 6. Peripheral neuropathy. 7. History of CONTRIBUTION SOLICITOR bleed. 8. Anemia. 9. History of AV fistula placement. ALLERGIES: Negative. MEDICATIONS TAKING AT HOME: 1. Coreg 12.5 b.i.d. 2. Vitamin D3. 3. Dexilant 60. 4. Iron sulfate. 5. Glipizide 2.5. 6. Hydralazine 75 b.i.d. 7. Imdur 20 t.i.d. 8. Tradjenta 5. 9. Simvastatin. 10. Multivitamin. 11. Pregabalin. 12. Insulin. 13. Ranexa 500 q.12. 14. Singulair 10 daily. SOCIAL HISTORY: No history of smoking, alcohol or any drug use. Currently lives with her daughter a t home. PAST SURGICAL HISTORY: AV fistula placement. REVIEW OF SYMPTOMS: The patient complained of intermittent left chest pain, some shortness of breath and some dizziness, feeling weak. Denied any headache, any blurry vision. Denied any focal neurolo gical deficit. Denied any abdominal pain, nausea, vomiting, diarrhea. Denied any headache. The pat ient has chronic vision changes per daughter. PHYSICAL EXAMINATION: VITAL SIGNS: Currently, blood pressure of 157/60, pulse 69, respirations 23, she is saturating 97%. GENERAL: The patient is awake, alert, oriented, does not appear to in any acute distress. HEENT: Pupils are equal, round, reactive to light. NECK: Supple. HEART: Regular rate and rhythm. LUNGS: Some decreased breath sounds bilaterally. ABDOMEN: Soft, nontender, nondistended. Positive normoactive bowel sounds. EXTREMITIES: No clubbing, cyanosis or edema. The patient has a left upper extremity fistula with br uit and a thrill. LABORATORY DATA: Show sodium 128, potassium 5.0, chloride 86, bicarbonate 25, BUN of 40, creatinine 5.64, glucose 224. White count of 6.5, hemoglobin 10.9, platelet count 258. Blood gas: pH of 7.4, pCO2 of 34, pO2 of 91, bicarbonate 26. IMAGING: Chest x-ray shows some bilateral small pleural effusion, mild cardiomegaly with some conges tive heart failure. CT of the brain is negative for any mass, shift or bleed, has chronic complete o pacification of right maxillary sinus. ASSESSMENT AND PLAN: This is a 73-year-old female who presented with: 1. Chest pain, rule out for acute coronary syndrome. The patient has risk factors of hypertension, hyperlipidemia, end-stage renal disease on hemodialysis. 2. Shortness of breath likely secondary to congestive heart failure. Per patient, they have not been able to remove much fluid at the dialysis center because the patient gets leg cramps. 3. Hyponatremia could be secondary to excessive fluid intake. 4. Dizziness. EKG evidence of sinus bradycardia plus the patient also has some opacification of the maxillary sinus. Need to rule out also cardiac etiology. CT of the head is negative. 5. Hypertension. 6. Hyperlipidemia. 7. End-stage renal disease on hemodialysis. 8. Gastroesophageal reflux disease. 9. Diabetes type 2. 10. History of central nervous system bleed. 11. History of peripheral neuropathy. PLAN: At this period of time, the patient will be admitted to telemetry unit. The patient will rece andrew hemodialysis. The patient will be on fluid restriction. The patient will get serial EKGs and tr oponins. She will get an echo. Cardiology consultation has been requested. Rest of the treatment w ill depend on the patient's hospitalization course. Dictated By: VENICE ARELLANO/RONNIE Conf#: [id number] DID#: [id number] CC: MICHELLE MARSH MD;*EndCC*
--- NOTE | 2019-01-26 15:36 | CONS ---
DATE OF ADMISSION: 01/26/2019 DATE OF CONSULTATION: 01/26/2019 CARDIOLOGY CONSULTATION REASON FOR CONSULTATION: Chest pain, shortness of breath, assess for acute coronary syndrome. REQUESTING PHYSICIAN: Paloma Alvarado MD HISTORY OF PRESENT ILLNESS: Ms. 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 The patient had absence since that time and decided that she would forego a cath at that time. The patient continued to have chest pain, shortness of breath, had presented to my office yesterday with complaints of substernal chest pain and was to be scheduled for outpatient cath. The patient no w presents to the ER with complaints of chest pain and shortness of breath. Upon arrival, temperatur e of 97.7, blood pressure 138/51, pulse 70, respiratory rate 21, satting 98%. The patient's labs wer e notable for a white count of 6.5, hemoglobin 10.9, platelet count of 258, a sodium 128, potassium 5 .0, creatinine 5.6, BUN 40, AST 31, ALT 16. BNP of 25,100, troponin negative. INR of 1.1. ABG with a pH of 7.49, a PaO2 of 91, a pCO2 of 34. The patient underwent a chest x-ray revealing moderate ca rdiomegaly without definite congestive heart failure, bilateral small effusions, patchy consolidation at the left base, and a head CT that revealed no acute intracranial abnormality, mild generalized pa renchymal volume loss, mild chronic microvascular white matter ischemic changes, chronic complete opa cification of the right maxillary sinus, atherosclerosis, trace effusions, and bilateral mastoid sinu ses. The patient's electrocardiogram revealed a sinus rhythm, rate of 71, with left ventricular hype rtrophy and voltage criteria and secondary repolarization abnormalities. The patient is to be admitt ed to the floor. The patient will undergo cardiac cath prior to going to the floor to assess for pos sibly significant obstructive coronary artery disease lending to chest pain, shortness of breath, pos itive stress test findings, and now admitted to the hospital. PAST MEDICAL HISTORY: As above in HPI. MEDICATIONS CURRENTLY IN HOSPITAL: 1. Calcium acetate. 2. Carvedilol 12.5 mg p.o. b.i.d. 3. Vitamin D. 4. Ferrous sulfate. 5. Folic acid. 6. Glipizide 7. Hydralazine 75 mg p.o. b.i.d. 8. Isordil 20 mg p.o. t.i.d. 9. Tradjenta 5 mg daily. 10. Singulair 10 mg at bedtime. 11. Multivite. 12. Insulin sliding scale. 13. Zofran p.r.n. 14. Dexilant 60 mg daily. ALLERGIES: NO KNOWN DRUG ALLERGIES. SOCIAL HISTORY: No current tobacco, ETOH or illicit drug use. FAMILY HISTORY: No sudden cardiac or early CAD. REVIEW OF SYSTEMS: As above in HPI. CONSTITUTIONAL: No fevers, chills. PULMONARY: Positive shortness of breath. CARDIOVASCULAR: Intermittent chest pain. GASTROINTESTINAL: No vomiting. GENITOURINARY: No hematuria. MUSCULOSKELETAL: No degenerative joint disease. PSYCHIATRIC: The patient denies depression. NEUROLOGIC: No documented history of CVA. PHYSICAL EXAMINATION VITAL SIGNS: Temperature of 98.7, blood pressure most recent 161/66, pulse 71, respirations 18, sat 97%. GENERAL: The patient is alert, awake, in no acute distress. NECK: JVP approximately 8 to 9 cm of water. CHEST: Fair air movement throughout. HEART: Regular rate and rhythm. Normal S1, S2, I/ systolic murmur, nondisplaced PMI. ABDOMEN: Positive bowel sounds, soft. EXTREMITIES: No significant pitting edema, 1+ pulses bilateral posterior tibial. LABORATORY DATA: As above in HPI. No further labs for my review at this time. IMAGING STUDIES: As above in HPI. No further imaging for my review at this time. ECG: As above in HPI. No further electrocardiograms for my review at this time. IMPRESSION: 1. Chest pain, assess for acute coronary syndrome. 2. Shortness of breath, assess for congestive heart failure. 3. Abnormal cardiac stress test, positive for ischemia. Assess for obstructive coronary artery dise ase. 4. Hypertension, uncontrolled at this time. 5. Dyslipidemia. 6. End-stage renal disease, on hemodialysis. 7. Anemia. 8. Hyponatremia. RECOMMENDATIONS: 1. At this time, would maintain patient on carvedilol, hydralazine. Follow blood pressure after rec eiving, and continue the patient's antianginal medications with Isordil. 2. Hemodialysis for volume removal. 3. Follow the patient's blood sugars closely. 4. The patient will undergo left heart catheterization to assess for possibility of significant obst ructive coronary artery disease lending to symptoms of chest pain and positive stress test findings w ith further recommendations to be made at completion of this study. 5. We will additionally check a fasting lipid panel for general risk stratification and initiate med ication as necessary. Thank you for allowing me to take part in the care of this patient. I will continue to follow him ve ry closely with you, with recommendations to be made as the patient progresses through his inpatient hospital clinical course. Dictated By: MICHELLE VALDEZ/RONNIE Conf#: [id number] DID#: [id number] CC: PALOMA ALVARADO;*EndCC*
[2019-01-26] MEDS: ISOSORBIDE DINITRATE 20 MG TAB PO SCH ×2 (16:29→21:02)
--- NOTE | 2019-01-26 17:47 | RADRPT ---
Echocardiogram Report Patient Name: CHOLO OJEDAPatient ID: [id number] : 1945 (73y 9m)Study Date: 01/26/2019 1:31:50 PM Gender: FAccession #: [id number] Tech: Javon Ruggiero [facility] Location: PACU Ref.Physician: VENICE VAZ Height(Cm): BSA: Weight(Kg): Quality: AdequateAccount #: Procedures: Echocardiographic Report: Transthoracic echocardiogram with complete 2D, M-Mode, and doppler examination. Indications: Congestive Heart Failure. Measurements: 2D/M Mode Doppler Measurement Value Normal Range Measurement Value Normal Range LVIDd 2D 4.3 [ 3.8 - 5.2 ] cm AV Peak Leighton 1.5 [ 100.0 - 170.0 ] cm/sec LVIDs 2D 3.1 [ 2.2 - 3.5 ] cm AV Peak PG 8.0 [ 2.0 - 9.0 ] mmHg LVPWd 2D 1.4 [ 0.6 - 0.9 ] cm AI Peak PG 55.0 mmHg IVSd 2D 1.4 [ 0.6 - 0.9 ] cm AI Peak Leighton 3.7 cm/sec AoR Diam 2D 2.6 [ 2.3 - 3.1 ] cm AI PHT 416.0 msec EDV 2D 80.8 [ 46.0 - 106.0 ] ml LVOT Peak Leighton 1.0 [ 70.0 - 110.0 ] cm/sec ESV 2D 36.7 [ 14.0 - 42.0 ] ml LVOT Peak PG 4.0 [ 2.0 - 6.0 ] mmHg EF 2D 54.6 [ 54.0 - 74.0 ] percent MV E Peak Leighton 1.2 [ 60.0 - 130.0 ] cm/sec LA Dimen 2D 4.1 [ 2.7 - 3.8 ] cm MV A Peak Leighton 1.0 [ 100.0 - 120.0 ] cm/sec MV E/A 1.3 [ 0.8 - 1.5 ] ratio MV Decel Time 176 [ 104 - 258 ] msec Lat E` Leighton 0.1 [ 10.0 - 15.0 ] cm/sec Lateral E/E` 21.1 [ 1.0 - 2.0 ] ratio MV E/A 1.3 [ 0.8 - 1.5 ] ratio TR Peak Leighton 3.9 [ 100.0 - 280.0 ] cm/sec TR Peak PG 62.0 mmHg RVSP 65.0 [ 10.0 - 36.0 ] mmHg Findings: Left Ventricle: Normal left ventricular systolic function. Normal left ventricular cavity size. Mild concentric left ventricular hypertrophy. Ejection fraction is visually estimated at 55 %. Tissue Doppler/Mitral Doppler indices are consistent with impaired relaxation (Stage I diastolic dysfunction). Right Ventricle: Normal right ventricular size. Normal right ventricular systolic function. Left Atrium: There is mild enlargement of left atrium. Right Atrium: The right atrium is normal in size. Mitral Valve: Mild mitral leaflet calcification. Mild mitral annular calcification. Moderate to severe mitral valve regurgitation. Aortic Valve: No hemodynamically significant aortic stenosis by doppler. Aortic cusps appear mildly calcified. Mild aortic valve regurgitation. Tricuspid Valve: Normal appearance of the tricuspid valve. Estimated peak PA systolic pressure 65 mmHg. There is moderate tricuspid regurgitation. Pulmonic Valve: Normal pulmonic valve appearance. There is mild pulmonic regurgitation. Pericardium: Normal pericardium with no significant pericardial effusion. Aorta: Normal aortic root. IVC: Normal size and normal respiratory collapse consistent with normal right atrial pressure. Conclusions: Normal left ventricular systolic function. Normal left ventricular cavity size. Mild concentric left ventricular hypertrophy. Ejection fraction is visually estimated at 55 %. Tissue Doppler/Mitral Doppler indices are consistent with impaired relaxation (Stage I diastolic dysfunction). There is mild enlargement of left atrium. Mild mitral leaflet calcification. Mild mitral annular calcification. Moderate to severe mitral valve regurgitation. No hemodynamically significant aortic stenosis by doppler. Aortic cusps appear mildly calcified. Mild aortic valve regurgitation. Normal appearance of the tricuspid valve. Estimated peak PA systolic pressure 65 mmHg. There is moderate tricuspid regurgitation. Normal pulmonic valve appearance. There is mild pulmonic regurgitation. n. Electronically Signed By: Modesto Marsh 2019-01-26 17:46:45 PDT
[2019-01-26] MEDS: INSULIN ASPART [NOVOLOG] 3 ML PEN SC SCH ×2 (18:00→22:27)
[2019-01-26] MEDS: FERROUS SULFATE (EC) 325 MG TAB PO SCH ×2 (19:30→21:00)
[2019-01-26] MEDS: CHOLECALCIFEROL 1,000 UNIT TAB PO SCH (19:30)
[2019-01-26] MEDS: FOLIC ACID 1 MG TAB PO SCH (19:30)
[2019-01-26] MEDS: MULTIVIT/CA CARB/B CMPLX/FA TAB PO SCH (19:30)
[2019-01-26] MEDS: PANTOPRAZOLE (EC) 40 MG TAB PO SCH (19:30)
[2019-01-26] MEDS: ACCU-CHEK XX SCH ×2 (19:30→21:00)
[2019-01-26] MEDS: CALCIUM ACETATE 667 MG CAP PO SCH ×2 (19:30→19:50)
[2019-01-26] MEDS: MONTELUKAST 10 MG TAB PO SCH (21:00)
--- NOTE | 2019-01-26 21:21 | CARRPT ---
DATE OF PROCEDURE: 01/26/2019 PROCEDURE: 1. Left heart catheterization. 2. Coronary angiography. 3. Moderate conscious sedation. ATTENDING PHYSICIAN: Michelle Marsh M.D. REFERRING PHYSICIAN: Self-referred. INDICATION: Chest pain refractory to medical therapy with positive stress test findings for ischemia . TYPE OF ANESTHESIA: Conscious and local. BRIEF HISTORY: Ms. Stiles is a 73-year-old female with history of hypertension, dyslipidemia, diabet es mellitus who initially presented with complaints of substernal chest pain to my office. The patie nt underwent a cardiac stress test. She had a positive ischemia at that time and placed in ascending medical therapy. She continued to have chest pain and was to be scheduled for cardiac catheterizati on as an outpatient. The patient now presents to the ER with complaints of substernal chest pain and EKG abnormalities. The patient was brought to the cardiac catheterization lab to undergo emergent l eft heart catheterization. DESCRIPTION OF PROCEDURE: After informed consent was obtained, the patient was brought to the [facility] cardiac catheterization lab where her right radial area was prepped and draped in the usual sterile fashion. A 2% lidocaine was infiltrated into right radial area in order to ach ieve adequate anesthesia. Using the modified Seldinger technique, the radial artery was cannulated a nd a 6-Georgian chest arterial sheath was placed. A 6-Georgian JL3 catheter was used to cannulate the le ft main coronary ostium. With contrast injection, multiple views of left coronary system is obtained . JL3.5 was removed over a guidewire and a JR4 was used to cannulate the right coronary arterial ost ium. With contrast injection, multiple views of the right coronary artery obtained. JL4 was removed over a guidewire and a 6-Georgian pigtail was passed in ____. LVEDP was measured, pulled across the ao rtic valve to assess for significant gradient, which there was not and removed. Subsequently, this c ompleted the procedure. The patient's sheath was removed. TR band was applied. There were no noted complications. FINDINGS: Coronary angiography: Left main 4 mm, no significant stenoses. Circumflex proximally is a 3 mm vessel with very quickly into an obtuse marginal and circ continuation AV groove. Circ contin uation AV groove is free of significant focal stenoses. The high branching obtuse marginal is a 2.5 mm vessel with no significant focal stenoses. LAD proximally is a 3 mm vessel, 10% lesion in the pro ximal portion. The LAD is free from focal stenoses. The proximal branching diagonal is 2 mm with no significant focal stenoses. The right coronary proximally 3 mm vessel has no significant focal sten oses throughout its entirety. The dominant vessel gives off a 2.5 mm PDA and a 2.5 mm posterolateral branch each with no significant focal stenoses. Measurement of left end diastolic pressure of 23 to 25. No significant aortic stenosis or gradient. TOTAL FLUOROSCOPY TIME: 4.9 minutes. TOTAL CONTRAST: 40 mL. IMPRESSION: 1. Very mild nonobstructive coronary artery disease. 2. Elevated left heart filling pressures. 3. No significant aortic systolic gradient. RECOMMENDATIONS: In light of procedure findings, we would: 1. Maximize medical management. 2. Aggressive risk factor reduction. 3. The patient will be admitted to the telemetry floor for post-catheterization. Continuemanaging her symptoms. Dictated By: MICHELLE VALDEZ/RONNIE Conf#: [id number] DID#: [id number]
[2019-01-27] VITALS (20 sets, daily range): BP systolic 98–169; BP diastolic 50–72; PULSE 73–81; RESP 16–18
[2019-01-27] MEDS: ACCU-CHEK XX SCH ×5 (02:00→21:00)
[2019-01-27] MEDS: INSULIN ASPART [NOVOLOG] 3 ML PEN SC SCH ×4 (07:36→22:04)
[2019-01-27] MEDS: ISOSORBIDE DINITRATE 20 MG TAB PO SCH ×3 (08:25→21:42)
[2019-01-27] MEDS: CHOLECALCIFEROL 1,000 UNIT TAB PO SCH (08:26)
[2019-01-27] MEDS: LINAGLIPTIN 5 MG TABLET PO SCH (08:26)
[2019-01-27] MEDS: MULTIVIT/CA CARB/B CMPLX/FA TAB PO SCH (08:26)
[2019-01-27] MEDS: CALCIUM ACETATE 667 MG CAP PO SCH ×2 (08:27→17:38)
[2019-01-27] MEDS: FERROUS SULFATE (EC) 325 MG TAB PO SCH ×2 (08:27→21:41)
[2019-01-27] MEDS: PANTOPRAZOLE (EC) 40 MG TAB PO SCH (08:27)
[2019-01-27] MEDS: FOLIC ACID 1 MG TAB PO SCH (08:28)
--- NOTE | 2019-01-27 09:46 | PN ---
Date/Time of Note Date/Time of Note DATE: 01/27/19 TIME: 09:46 Assessment/Plan VTE Prophylaxis Risk score (from Nsg)>0 risk: 3 SCD applied (from Nsg): No SCD contraindicated: low risk/ambulating Pharmacological prophylaxis: NA/contraindicated Pharm contraindication: low risk/ambulating Lines/Catheters IV Catheter Type (from Nrs): Saline Lock Assessment/Plan Hospital Course 1 Chest pain, rule out for acute coronary syndrome. The patient has risk factors of hypertension, hyperlipidemia, end-stage renal disease on hemodialysis.s/p LHC on 01/26 with non obstructuve CAD 2. Shortness of breath likely secondary to congestive heart failure. Per patient, they have not been able to remove much fluid at the dialysis center because the patient gets leg cramps. 3. Hyponatremia could be secondary to excessive fluid intake. 4. Dizziness. EKG evidence of sinus bradycardia plus the patient also has some opacification of the maxillary sinus. Need to rule out also cardiac etiology. CT of the head is negative.Carotid u/s neg, now per silvanauther has weakness of left leg 5. Hypertension. 6. Hyperlipidemia. 7. End-stage renal disease on hemodialysis. 8. Gastroesophageal reflux disease. 9. Diabetes type 2. 10. History of central nervous system bleed. 11. History of peripheral neuropathy. 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 -c w corg/imdur/hydralazine -c w tradjenta/ISS - orthostatics - HD tmw - Result Diagram: 01/27/1963001/27/1931 Results 24hrs Laboratory Tests Test 01/26/19 09:51 01/26/19 13:19 01/26/19 16:27 01/26/19 18:26 Lactic Acid Level 1.6 Creatine Kinase 148 151 Creatine Kinase Index 1.3 1.1 Creatinine Kinase MB 1.90 1.70 (Mass) Troponin I 0.026 < 0.012 Bedside Glucose 173 Test 01/26/19 21:05 01/27/19 06:31 01/27/19 07:30 Bedside Glucose 254 H 164 White Blood Count 7.1 Red Blood Count 3.65 L Hemoglobin 11.5 L Hematocrit 34.7 L Mean Corpuscular Volume 95.1 Mean Corpuscular 31.5 Hemoglobin Mean Corpuscular 33.1 Hemoglobin Concent Red Cell Distribution 14.6 H Width Platelet Count 285 Mean Platelet Volume 9.6 Immature Granulocytes % 0.400 Neutrophils % 67.2 Lymphocytes % 18.3 Monocytes % 12.7 H Eosinophils % 0.8 Basophils % 0.6 Nucleated Red Blood 0.0 Cells % Immature Granulocytes # 0.030 Neutrophils # 4.7 Lymphocytes # 1.3 Monocytes # 0.9 Eosinophils # 0.1 Basophils # 0.0 Nucleated Red Blood 0.0 Cells # Sodium Level 138 Potassium Level 4.3 Chloride Level 89 L Carbon Dioxide Level 37 #H Anion Gap 12 Blood Urea Nitrogen 20 # Creatinine 3.88 #H Est Glomerular Filtrat Rate mL/min Glucose Level 160 Calcium Level 9.0 Phosphorus Level 3.8 Magnesium Level 2.1 Total Bilirubin 0.1 L Direct Bilirubin 0.00 Indirect Bilirubin 0.1 Aspartate Amino 37 Transf (AST/SGOT) Alanine 17 Aminotransferase (ALT/SG PT) Alkaline Phosphatase 165 H Total Protein 7.9 Albumin 4.0 Globulin 3.90 H Albumin/Globulin Ratio 1.02 Triglycerides Level 273 H Cholesterol Level 139 LDL Cholesterol, 38 Calculated HDL Cholesterol 46 Cholesterol/HDL Ratio 3.0 Thyroid Stimulating 2.640 Hormone (TSH) Subjective 24 Hr Interval Summary Free Text/Dictation s/p LHC with non obstrcutive CAD Per silvanaugjoshua pt stated her has weakness of left leg Exam/Review of Systems Exam Vitals Vital Signs Date Temp Pulse Resp B/P (MAP) Pulse Ox O2 O2 Flow FiO2 Time Delivery Rate 01/27/19 98.0 77 18 151/66 92 Room Air 07:23 (94) Intake and Output 01/26/19 01/26/19 01/27/19 1515:00 23:00 07:00 IntakeIntake Total 300 ml OutputOutput Total 4400 ml BalanceBalance -4100 ml Exam GENERAL: The patient is awake, alert, oriented, does not appear to in any acute distress. HEENT: Pupils are equal, round, reactive to light. NECK: Supple. HEART: Regular rate and rhythm. LUNGS: Some decreased breath sounds bilaterally. ABDOMEN: Soft, nontender, nondistended. Positive normoactive bowel sounds. EXTREMITIES: No clubbing, cyanosis or edema. The patient has a left upper extremity fistula with bruit and a thrill. Results Results 24hrs Laboratory Tests Test 01/26/19 09:51 01/26/19 13:19 01/26/19 16:27 01/26/19 18:26 Lactic Acid Level 1.6 Creatine Kinase 148 151 Creatine Kinase Index 1.3 1.1 Creatinine Kinase MB 1.90 1.70 (Mass) Troponin I 0.026 < 0.012 Bedside Glucose 173 Test 01/26/19 21:05 01/27/19 06:31 01/27/19 07:30 Bedside Glucose 254 H 164 White Blood Count 7.1 Red Blood Count 3.65 L Hemoglobin 11.5 L Hematocrit 34.7 L Mean Corpuscular Volume 95.1 Mean Corpuscular 31.5 Hemoglobin Mean Corpuscular 33.1 Hemoglobin Concent Red Cell Distribution 14.6 H Width Platelet Count 285 Mean Platelet Volume 9.6 Immature Granulocytes % 0.400 Neutrophils % 67.2 Lymphocytes % 18.3 Monocytes % 12.7 H Eosinophils % 0.8 Basophils % 0.6 Nucleated Red Blood 0.0 Cells % Immature Granulocytes # 0.030 Neutrophils # 4.7 Lymphocytes # 1.3 Monocytes # 0.9 Eosinophils # 0.1 Basophils # 0.0 Nucleated Red Blood 0.0 Cells # Sodium Level 138 Potassium Level 4.3 Chloride Level 89 L Carbon Dioxide Level 37 #H Anion Gap 12 Blood Urea Nitrogen 20 # Creatinine 3.88 #H Est Glomerular Filtrat Rate mL/min Glucose Level 160 Calcium Level 9.0 Phosphorus Level 3.8 Magnesium Level 2.1 Total Bilirubin 0.1 L Direct Bilirubin 0.00 Indirect Bilirubin 0.1 Aspartate Amino 37 Transf (AST/SGOT) Alanine 17 Aminotransferase (ALT/SG PT) Alkaline Phosphatase 165 H Total Protein 7.9 Albumin 4.0 Globulin 3.90 H Albumin/Globulin Ratio 1.02 Triglycerides Level 273 H Cholesterol Level 139 LDL Cholesterol, 38 Calculated HDL Cholesterol 46 Cholesterol/HDL Ratio 3.0 Thyroid Stimulating 2.640 Hormone (TSH) Medications Medication Current Medications IV Flush (NS 3 ml) 3 ml PER PROTOCOL IV ; Start 01/26/19 at 10:30 Ondansetron HCl (Zofran Tab) 4 mg Q6H PRN PO NAUSEA/VOMITING; Start 01/26/19 at 10:30 Acetaminophen (Tylenol Tab) 650 mg Q6H PRN PO .PAIN 1-3 OR TEMP; Start 01/26/19 at 10:30 Docusate Sodium (Colace) 100 mg Q12H PRN PO .CONSTIPATION; Start 01/26/19 at 10:30 Calcium Acetate (Phoslo) 667 mg BID WITH MEALS PO Last administered on 08:27; Admin Dose 667 MG; Start 01/26/19 at 10:30 Carvedilol (Coreg) 12.5 mg BID PO Last administered on 01/27/19 08:26; Admin Dose 12.5 MG; Start 01/26/19 at 21:00 Cholecalciferol (Vitamin D) 1,000 unit DAILY PO Last administered on 01/27/19 08:26; Admin Dose 1,000 UNIT; Start 01/26/19 at 10:30 Ferrous Sulfate (Ferrous Sulfate (Ec)) 325 mg BID PO Last administered on 01/27/19 08:27; Admin Dose 325 MG; Start 01/26/19 at 10:30 Folic Acid (Folic Acid) 1 mg DAILY PO Last administered on 01/27/19 08:28; Admin Dose 1 MG; Start 01/26/19 at 10:30 Hydralazine HCl (Apresoline) 75 mg BID PO Last administered on 01/27/19 08:27; Admin Dose 75 MG; Start 01/26/19 at 17:00 Isosorbide Dinitrate (Isordil) 20 mg TID PO Last administered on 01/27/19 08:25; Admin Dose 20 MG; Start 01/26/19 at 13:00 Linagliptin (Tradjenta) 5 mg DAILY PO Last administered on 01/27/19 08:26; Admin Dose 5 MG; Start 01/27/19 at 09:00 Montelukast Sodium (Singulair) 10 mg QHS PO Last administered on 01/26/19 21:00; Admin Dose 10 MG; Start 01/26/19 at 21:00 Multivit/Ca Carb/ B Cmplx/FA/Prenat (Becky-Maddy) 1 tab DAILY PO Last administered on 01/27/19 08:26; Admin Dose 1 TAB; Start 01/26/19 at 10:30 Pantoprazole (Protonix Tab) 40 mg DAILY PO Last administered on 01/27/19 08:27; Admin Dose 40 MG; Start 01/26/19 at 10:30 Diagnostic Test (Pha) (Accu-Chek) 1 ea AC MEALS AND BEDTIME XX ; Start 01/26/19 at 11:30 Diagnostic Test (Pha) (Accu-Chek) 1 ea 02 XX ; Start 01/27/19 at 02:00 Insulin Aspart (Novolog Insulin Pen) NOVOLOG *MILD* ALGORITHM WITH MEALS BEDTIME SC Last administered on 01/27/19at 07:36; Admin Dose 1 UNIT; Start 01/26/19 at 12:00 Miscellaneous Information 1 ea NOTE XX ; Start 01/26/19 at 11:30 Glucose (Glutose) 15 gm Q15M PRN PO DECREASED GLUCOSE; Start 01/26/19 at 11:30 Glucose (Glutose) 22.5 gm Q15M PRN PO DECREASED GLUCOSE; Start 01/26/19 at 11:30 Dextrose (D50w Syringe) 25 ml Q15M PRN IV DECREASED GLUCOSE; Start 01/26/19 at 11:30 Dextrose (D50w Syringe) 50 ml Q15M PRN IV DECREASED GLUCOSE; Start 01/26/19 at 11:30 Glucagon (Glucagen) 1 mg Q15M PRN IM DECREASED GLUCOSE; Start 01/26/19 at 11:30 Glucose (Glutose) 15 gm Q15M PRN BUCCAL DECREASED GLUCOSE; Start 01/26/19 at 11:30 Acetaminophen (Tylenol Tab) 650 mg Q4H PRN PO NON-CARDIAC PAIN LEVEL (1-3); Start 01/26/19 at 12:30 Morphine Sulfate (morphine) 2 mg Q2H PRN IV FOR NON CARDIAC PAIN (4-10); Start 01/26/19 at 12:30 Al Hydrox/Mg Hydrox/Simethicone (Mag-Al Plus) 30 ml Q4H PRN PO GASTROINTESTINAL UPSET; Start 01/26/19 at 12:30 Ondansetron HCl (Zofran Inj) 4 mg Q4H PRN IV NAUSEA AND/OR VOMITING Last administered on 01/27/19at 08:23; Admin Dose 4 MG; Start 01/26/19 at 12:30 VENICE VAZ MD Jan 27, 2019 09:46
[2019-01-27] MEDS: DOCUSATE SODIUM 100 MG CAP PO SCH ×2 (12:05→21:40)
[2019-01-27] MEDS: ACETAMINOPHEN 325 MG TAB PO PRN (13:01)
--- NOTE | 2019-01-27 18:10 | CONS ---
Assessment/Plan Assessment/Plan Hospital Course (Demo Recall) IMPRESSION: 1. Chest pain, assess for acute coronary syndrome. 2. Shortness of breath, assess for congestive heart failure. Nl EF 3. Abnormal cardiac stress test, positive for ischemia. Assess for obstructive coronary artery disease. 4. Hypertension, uncontrolled at this time. 5. Dyslipidemia. 6. End-stage renal disease, on hemodialysis. 7. Anemia. 8. Hyponatremia-resolved/improved 9. Possible PNA 10. MR-mod to severe by echo this admit 11.Dizziness- Recc: -Tele -serial ecg's -Continue coreg/hydralazine/isordil -HD tomorrow/agggresive for volume removal -pnding MRI -May require further work-up of mitral regurgitation with LEVI to assess mechanism which could be done as outpatient Consultation Date/Type/Reason Admit Date/Time Jan 27, 2019 at 15:56 Initial Consult Date 01/27/19 Type of Consult Cardiology Reason for Consultation Chest pain/sob Requesting Provider: VENICE VAZ MD Date/Time of Note DATE: 01/27/19 TIME: 18:01 Exam/Review of Systems Vital Signs Vitals Vital Signs Date Temp Pulse Resp B/P (MAP) Pulse Ox O2 O2 Flow FiO2 Time Delivery Rate 01/27/19 73 16:42 01/27/19 98.0 18 143/64 97 Room Air 15:14 (90) Intake and Output 01/26/19 01/26/19 01/27/19 1515:00 23:00 07:00 IntakeIntake Total 300 ml OutputOutput Total 4400 ml BalanceBalance -4100 ml Exam Exam Review of Systems: CONSTITUTIONAL: No fevers, chills. PULMONARY: mild sob CARDIOVASCULAR: intermitent chest pain GASTROINTESTINAL: No nausea/vomiting. GENITOURINARY: No hematuria/dysuria. MUSCULOSKELETAL: No myagias/arthalgias. PSYCHIATRIC: The patient denies depression. NEUROLOGIC: No weakness Constitutional: alert, oriented Psych: no complaints Head: normocephalic ENMT: mucosa pink and moist Neck: supple, jvd (9 cm water) Respiratory: diminished breath sounds (at bases/B) Cardiovascular: regular rate and rhythm Gastrointestinal: soft, non-tender Musculoskeletal: muscle tone (normal) Extremities: edema (trace/B) Neurological: other (No focal deficits) Labs Result Diagram: 01/27/19 0631 01/27/19 0631 Results 24hrs Laboratory Tests Test 01/26/19 18:26 01/26/19 21:05 01/27/19 06:31 01/27/19 07:30 Bedside Glucose 173 254 H 164 White Blood Count 7.1 Red Blood Count 3.65 L Hemoglobin 11.5 L Hematocrit 34.7 L Mean Corpuscular Volume 95.1 Mean Corpuscular 31.5 Hemoglobin Mean Corpuscular 33.1 Hemoglobin Concent Red Cell Distribution 14.6 H Width Platelet Count 285 Mean Platelet Volume 9.6 Immature Granulocytes % 0.400 Neutrophils % 67.2 Lymphocytes % 18.3 Monocytes % 12.7 H Eosinophils % 0.8 Basophils % 0.6 Nucleated Red Blood 0.0 Cells % Immature Granulocytes # 0.030 Neutrophils # 4.7 Lymphocytes # 1.3 Monocytes # 0.9 Eosinophils # 0.1 Basophils # 0.0 Nucleated Red Blood 0.0 Cells # Sodium Level 138 Potassium Level 4.3 Chloride Level 89 L Carbon Dioxide Level 37 #H Anion Gap 12 Blood Urea Nitrogen 20 # Creatinine 3.88 #H Est Glomerular Filtrat Rate mL/min Glucose Level 160 Calcium Level 9.0 Phosphorus Level 3.8 Magnesium Level 2.1 Total Bilirubin 0.1 L Direct Bilirubin 0.00 Indirect Bilirubin 0.1 Aspartate Amino 37 Transf (AST/SGOT) Alanine 17 Aminotransferase (ALT/SG PT) Alkaline Phosphatase 165 H Total Protein 7.9 Albumin 4.0 Globulin 3.90 H Albumin/Globulin Ratio 1.02 Triglycerides Level 273 H Cholesterol Level 139 LDL Cholesterol, 38 Calculated HDL Cholesterol 46 Cholesterol/HDL Ratio 3.0 Thyroid Stimulating 2.640 Hormone (TSH) Test 01/27/19 12:02 01/27/19 17:35 Bedside Glucose 254 H 189 Medications Medications Current Medications IV Flush (NS 3 ml) 3 ml PER PROTOCOL IV ; Start 01/26/19 at 10:30 Ondansetron HCl (Zofran Tab) 4 mg Q6H PRN PO NAUSEA/VOMITING; Start 01/26/19 at 10:30 Acetaminophen (Tylenol Tab) 650 mg Q6H PRN PO .PAIN 1-3 OR TEMP; Start 01/26/19 at 10:30 Docusate Sodium (Colace) 100 mg Q12H PRN PO .CONSTIPATION; Start 01/26/19 at 10:30 Calcium Acetate (Phoslo) 667 mg BID WITH MEALS PO Last administered on 01/27/19 17:38; Admin Dose 667 MG; Start 01/26/19 at 10:30 Carvedilol (Coreg) 12.5 mg BID PO Last administered on 01/27/19 08:26; Admin Dose 12.5 MG; Start 01/26/19 at 21:00 Cholecalciferol (Vitamin D) 1,000 unit DAILY PO Last administered on 01/27/19 08:26; Admin Dose 1,000 UNIT; Start 01/26/19 at 10:30 Ferrous Sulfate (Ferrous Sulfate (Ec)) 325 mg BID PO Last administered on 01/27/19 08:27; Admin Dose 325 MG; Start 01/26/19 at 10:30 Folic Acid (Folic Acid) 1 mg DAILY PO Last administered on 01/27/19 08:28; Admin Dose 1 MG; Start 01/26/19 at 10:30 Hydralazine HCl (Apresoline) 75 mg BID PO Last administered on 01/27/19 08:27; Admin Dose 75 MG; Start 01/26/19 at 17:00 Isosorbide Dinitrate (Isordil) 20 mg TID PO Last administered on 01/27/19 12:05; Admin Dose 20 MG; Start 01/26/19 at 13:00 Linagliptin (Tradjenta) 5 mg DAILY PO Last administered on 01/27/19 08:26; Admin Dose 5 MG; Start 01/27/19 at 09:00 Montelukast Sodium (Singulair) 10 mg QHS PO Last administered on 01/26/19 21:00; Admin Dose 10 MG; Start 01/26/19 at 21:00 Multivit/Ca Carb/ B Cmplx/FA/Prenat (Becyk-Maddy) 1 tab DAILY PO Last admini stered on 01/27/19 08:26; Admin Dose 1 TAB; Start 01/26/19 at 10:30 Pantoprazole (Protonix Tab) 40 mg DAILY PO Last administered on 01/27/19 08:27; Admin Dose 40 MG; Start 01/26/19 at 10:30 Diagnostic Test (Pha) (Accu-Chek) 1 ea AC MEALS AND BEDTIME XX ; Start 01/26/19 at 11:30 Diagnostic Test (Pha) (Accu-Chek) 1 ea 02 XX ; Start 01/27/19 at 02:00 Insulin Aspart (Novolog Insulin Pen) NOVOLOG *MILD* ALGORITHM WITH MEALS BEDTIME SC Last administered on 01/27/19at 17:41; Admin Dose 2 UNIT; Start 01/26 at 12:00 Miscellaneous Information 1 ea NOTE XX ; Start 01/26/19 at 11:30 Glucose (Glutose) 15 gm Q15M PRN PO DECREASED GLUCOSE; Start 01/26/19 at 11:30 Glucose (Glutose) 22.5 gm Q15M PRN PO DECREASED GLUCOSE; Start 01/26/19 at 11:30 Dextrose (D50w Syringe) 25 ml Q15M PRN IV DECREASED GLUCOSE; Start 01/26/19 at 11:30 Dextrose (D50w Syringe) 50 ml Q15M PRN IV DECREASED GLUCOSE; Start 01/26/19 at 11:30 Glucagon (Glucagen) 1 mg Q15M PRN IM DECREASED GLUCOSE; Start 01/26/19 at 11:30 Glucose (Glutose) 15 gm Q15M PRN BUCCAL DECREASED GLUCOSE; Start 01/26/19 at 11:30 Acetaminophen (Tylenol Tab) 650 mg Q4H PRN PO NON-CARDIAC PAIN LEVEL (1-3) Last administered on 01/27/19at 13:01; Admin Dose 650 MG; Start 01/26/19 at 12:30 Morphine Sulfate (morphine) 2 mg Q2H PRN IV FOR NON CARDIAC PAIN (4-10); Start 01/26/19 at 12:30 Al Hydrox/Mg Hydrox/Simethicone (Mag-Al Plus) 30 ml Q4H PRN PO GASTROINTESTINAL UPSET; Start 01/26/19 at 12:30 Ondansetron HCl (Zofran Inj) 4 mg Q4H PRN IV NAUSEA AND/OR VOMITING Last administered on 01/27/19at 08:23; Admin Dose 4 MG; Start 01/26/19 at 12:30 Docusate Sodium (Colace) 100 mg BID PO Last administered on 01/27/19at 12:05; Admin Dose 100 MG; Start 01/27/19 at 10:00 MICHELLE DRUMMOND Jan 27, 2019 18:10
[2019-01-27] MEDS: MONTELUKAST 10 MG TAB PO SCH (21:42)
[2019-01-28] VITALS (29 sets, daily range): BP systolic 93–181; BP diastolic 50–81; PULSE 74–80; RESP 16–20
[2019-01-28] MEDS: ACCU-CHEK XX SCH ×5 (02:06→21:00)
[2019-01-28] MEDS: INSULIN ASPART [NOVOLOG] 3 ML PEN SC SCH ×5 (07:55→21:29)
[2019-01-28] MEDS: LINAGLIPTIN 5 MG TABLET PO SCH (08:11)
[2019-01-28] MEDS: PANTOPRAZOLE (EC) 40 MG TAB PO SCH (08:11)
[2019-01-28] MEDS: FOLIC ACID 1 MG TAB PO SCH (08:12)
[2019-01-28] MEDS: CHOLECALCIFEROL 1,000 UNIT TAB PO SCH (08:12)
[2019-01-28] MEDS: MULTIVIT/CA CARB/B CMPLX/FA TAB PO SCH (08:12)
[2019-01-28] MEDS: DOCUSATE SODIUM 100 MG CAP PO SCH ×2 (08:12→20:43)
[2019-01-28] MEDS: ISOSORBIDE DINITRATE 20 MG TAB PO SCH ×3 (08:12→20:44)
[2019-01-28] MEDS: CALCIUM ACETATE 667 MG CAP PO SCH ×2 (08:12→17:17)
[2019-01-28] MEDS: FERROUS SULFATE (EC) 325 MG TAB PO SCH ×2 (08:12→20:44)
--- NOTE | 2019-01-28 09:48 | PN ---
Date/Time of Note Date/Time of Note DATE: 01/28/19 TIME: 09:48 Assessment/Plan VTE Prophylaxis Risk score (from Nsg)>0 risk: 3 SCD applied (from Ns): No SCD contraindicated: low risk/ambulating Pharmacological prophylaxis: NA/contraindicated Pharm contraindication: low risk/ambulating Lines/Catheters [facility] Saline Lock Assessment/Plan Hospital Course 1 Chest pain, rule out for acute coronary syndrome. The patient has risk factors of hypertension, hyperlipidemia, end-stage renal disease on hemodialysis.s/p LHC on 01/26 with non obstructuve CAD 2. Shortness of breath likely secondary to congestive heart failure. Per patient, they have not been able to remove much fluid at the dialysis center because the patient gets leg cramps. 3. Hyponatremia could be secondary to excessive fluid intake. 4. Dizziness. EKG evidence of sinus bradycardia plus the patient also has some opacification of the maxillary sinus. Need to rule out also cardiac etiology. CT of the head is negative.Carotid u/s neg, now per dauther has weakness of left leg 5. Hypertension. 6. Hyperlipidemia. 7. End-stage renal disease on hemodialysis. 8. Gastroesophageal reflux disease. 9. Diabetes type 2. 10. History of central nervous system bleed. 11. History of peripheral neuropathy. Plduplicate Result Diagram: 01/27/19 0631 01/28/19 0539 Results 24hrs Laboratory Tests Test 01/27/19 12:02 01/27/19 17:35 01/27/19 21:26 01/28/19 01:28 Bedside Glucose 254 H 189 259 H 231 H Test 01/28/19 05:39 01/28/19 07:42 Sodium Level 133 L Potassium Level 4.3 Chloride Level 89 L Carbon Dioxide Level 33 H Anion Gap 11 Blood Urea Nitrogen 41 #H Creatinine 6.03 #H Est Glomerular Filtrat Rate mL/min Glucose Level 278 #H Calcium Level 9.0 Bedside Glucose 249 H Subjective 24 Hr Interval Summary Free Text/Dictation h Exam/Review of Systems Exam Vitals Vital Signs Date Temp Pulse Resp B/P (MAP) Pulse Ox O2 O2 Flow FiO2 Time Delivery Rate 01/28/19 76 08:16 01/28/19 98.0 18 164/72 97 Room Air 07:33 (102) Intake and Output 01/27/19 01/27/19 01/28/19 1515:00 23:00 07:00 IntakeIntake Total 880 ml BalanceBalance 880 ml Exam h Results Results 24hrs Laboratory Tests Test 01/27/19 12:02 01/27/19 17:35 01/27/19 21:26 01/28/19 01:28 Bedside Glucose 254 H 189 259 H 231 H Test 01/28/19 05:39 01/28/19 07:42 Sodium Level 133 L Potassium Level 4.3 Chloride Level 89 L Carbon Dioxide Level 33 H Anion Gap 11 Blood Urea Nitrogen 41 #H Creatinine 6.03 #H Est Glomerular Filtrat Rate mL/min Glucose Level 278 #H Calcium Level 9.0 Bedside Glucose 249 H Medications Medication Current Medications IV Flush (NS 3 ml) 3 ml PER PROTOCOL IV ; Start 01/26/19 at 10:30 Ondansetron HCl (Zofran Tab) 4 mg Q6H PRN PO NAUSEA/VOMITING; Start 01/26/19 at 10:30 Acetaminophen (Tylenol Tab) 650 mg Q6H PRN PO .PAIN 1-3 OR TEMP; Start 01/26/19 at 10:30 Docusate Sodium (Colace) 100 mg Q12H PRN PO .CONSTIPATION; Start 01/26/19 at 10:30 Calcium Acetate (Phoslo) 667 mg BID WITH MEALS PO Last administered on 01/28/19 08:12; Admin Dose 667 MG; Start 01/26/19 at 10:30 Carvedilol (Coreg) 12.5 mg BID PO Last administered on 01/28/19 08:11; Admin Dose 12.5 MG; Start 01/26/19 at 21:00 Cholecalciferol (Vitamin D) 1,000 unit DAILY PO Last administered on 01/28/19 08:12; Admin Dose 1,000 UNIT; Start 01/26/19 at 10:30 Ferrous Sulfate (Ferrous Sulfate (Ec)) 325 mg BID PO Last administered on 01/28/19 08:12; Admin Dose 325 MG; Start 01/26/19 at 10:30 Folic Acid (Folic Acid) 1 mg DAILY PO Last administered on 01/28/19 08:12; Admin Dose 1 MG; Start 01/26/19 at 10:30 Hydralazine HCl (Apresoline) 75 mg BID PO Last administered on 01/28/19 08:12; Admin Dose 75 MG; Start 01/26/19 at 17:00 Isosorbide Dinitrate (Isordil) 20 mg TID PO Last administered on 01/28/19 08:12; Admin Dose 20 MG; Start 01/26/19 at 13:00 Linagliptin (Tradjenta) 5 mg DAILY PO Last administered on 01/28/19 08:11; Admin Dose 5 MG; Start 01/27/19 at 09:00 Montelukast Sodium (Singulair) 10 mg QHS PO Last administered on 01/27/19 21:42; Admin Dose 10 MG; Start 01/26/19 at 21:00 Multivit/Ca Carb/ B Cmplx/FA/Prenat (Becky-Maddy) 1 tab DAILY PO Last administered on 01/28/19 08:12; Admin Dose 1 TAB; Start 01/26/19 at 10:30 Pantoprazole (Protonix Tab) 40 mg DAILY PO Last administered on 01/28/19 08:11; Admin Dose 40 MG; Start 01/26/19 at 10:30 Diagnostic Test (Pha) (Accu-Chek) 1 ea AC MEALS AND BEDTIME XX Last administered on 01/27/19 21:00; Admin Dose 1 EA; Start 01/26/19 at 11:30 Diagnostic Test (Pha) (Accu-Chek) 1 ea 02 XX Last administered on 01/28/19 02:06; Admin Dose 1 EA; Start 01/27/19 at 02:00 Insulin Aspart (Novolog Insulin Pen) NOVOLOG *MILD* ALGORITHM WITH MEALS BEDTIME SC Last administered on 01/28/19 07:55; Admin Dose 3 UNIT; Start 01/26/19 at 12:00 Miscellaneous Information 1 ea NOTE XX ; Start 01/26/19 at 11:30 Glucose (Glutose) 15 gm Q15M PRN PO DECREASED GLUCOSE; Start 01/26/19 at 11:30 Glucose (Glutose) 22.5 gm Q15M PRN PO DECREASED GLUCOSE; Start 01/26/19 at 11:30 Dextrose (D50w Syringe) 25 ml Q15M PRN IV DECREASED GLUCOSE; Start 01/26/19 at 11:30 Dextrose (D50w Syringe) 50 ml Q15M PRN IV DECREASED GLUCOSE; Start 01/26/19 at 11:30 Glucagon (Glucagen) 1 mg Q15M PRN IM DECREASED GLUCOSE; Start 01/26/19 at 11:30 Glucose (Glutose) 15 gm Q15M PRN BUCCAL DECREASED GLUCOSE; Start 01/26/19 at 11:30 Acetaminophen (Tylenol Tab) 650 mg Q4H PRN PO NON-CARDIAC PAIN LEVEL (1-3) Last administered on 01/27/19at 13:01; Admin Dose 650 MG; Start 01/26/19 at 12:30 Morphine Sulfate (morphine) 2 mg Q2H PRN IV FOR NON CARDIAC PAIN (4-10); Start 01/26/19 at 12:30 Al Hydrox/Mg Hydrox/Simethicone (Mag-Al Plus) 30 ml Q4H PRN PO GASTROINTESTINAL UPSET; Start 01/26/19 at 12:30 Ondansetron HCl (Zofran Inj) 4 mg Q4H PRN IV NAUSEA AND/OR VOMITING Last administered on 01/27/19at 08:23; Admin Dose 4 MG; Start 01/26/19 at 12:30 Docusate Sodium (Colace) 100 mg BID PO Last administered on 01/28/19 08:12; Admin Dose 100 MG; Start 01/27/19 at 10:00 VENICE VAZ MD Jan 28, 2019 09:48
--- NOTE | 2019-01-28 09:50 | PN ---
Date/Time of Note Date/Time of Note DATE: 01/28/19 TIME: 09:50 Assessment/Plan VTE Prophylaxis Risk score (from Nsg)>0 risk: 3 SCD applied (from Nsg): No SCD contraindicated: low risk/ambulating Pharmacological prophylaxis: NA/contraindicated Pharm contraindication: low risk/ambulating Lines/Catheters IV Catheter Type (from Nrsg): Saline Lock Assessment/Plan Hospital Course 1 Chest pain, rule out for acute coronary syndrome. The patient has risk factors of hypertension, hyperlipidemia, end-stage renal disease on hemodialysis.s/p LHC on 01/26 with non obstructuve CAD 2. Shortness of breath likely secondary to congestive heart failure. Per patient, they have not been able to remove much fluid at the dialysis center because the patient gets leg cramps. 3. Hyponatremia could be secondary to excessive fluid intake. resolved 4. Dizziness. EKG evidence of sinus bradycardia plus the patient also has some opacification of the maxillary sinus. Need to rule out also cardiac etiology. CT of the head is negative.Carotid u/s neg, now per dauther has weakness of left leg 5. Hypertension. 6. Hyperlipidemia. 7. End-stage renal disease on hemodialysis. 8. Gastroesophageal reflux disease. 9. Diabetes type 2. 10. History of central nervous system bleed. 11. History of peripheral neuropathy. 12 weakness/numbness of the left leg Plan - daugther reports weakness of left leg and pt feels left leg heavy, will check MRI brain/mri LUMBAR spine - PT/OT eval - Pt not on any ASA due to CH[employer] bleed -c w corg/imdur/hydralazine -c w tradjenta/ISS -Add Lantus and mealtime insulin due to uncontrolled sugars - cw MWF HD, -HD planned today Result Diagram: 01/27/19 0631 01/28/19 0539 Results 24hrs Laboratory Tests Test 01/27/19 12:02 01/27/19 17:35 01/27/19 21:26 01/28/19 01:28 Bedside Glucose 254 H 189 259 H 231 H Test 01/28/19 05:39 01/28/19 07:42 Sodium Level 133 L Potassium Level 4.3 Chloride Level 89 L Carbon Dioxide Level 33 H Anion Gap 11 Blood Urea Nitrogen 41 #H Creatinine 6.03 #H Est Glomerular Filtrat Rate mL/min Glucose Level 278 #H Calcium Level 9.0 Bedside Glucose 249 H Subjective 24 Hr Interval Summary Free Text/Dictation She did complain of numbness in the left leg and feels that the left leg feels heavy Exam/Review of Systems Exam Vitals Vital Signs Date Temp Pulse Resp B/P (MAP) Pulse Ox O2 O2 Flow FiO2 Time Delivery Rate 01/28/19 76 08:16 01/28/19 98.0 18 164/72 97 Room Air 07:33 (102) Intake and Output 01/27/19 01/27/19 01/28/19 1515:00 23:00 07:00 IntakeIntake Total 880 ml BalanceBalance 880 ml Exam xam GENERAL: The patient is awake, alert, oriented, does not appear to in any acute distress. HEENT: Pupils are equal, round, reactive to light. NECK: Supple. HEART: Regular rate and rhythm. LUNGS: Some decreased breath sounds bilaterally. ABDOMEN: Soft, nontender, nondistended. Positive normoactive bowel sounds. EXTREMITIES: No clubbing, cyanosis or edema. The patient has a left upper extremity fistula with bruit and a thrill Left leg 4 x 5 weakness Results Results 24hrs Laboratory Tests Test 01/27/19 12:02 01/27/19 17:35 01/27/19 21:26 01/28/19 01:28 Bedside Glucose 254 H 189 259 H 231 H Test 01/28/19 05:39 01/28/19 07:42 Sodium Level 133 L Potassium Level 4.3 Chloride Level 89 L Carbon Dioxide Level 33 H Anion Gap 11 Blood Urea Nitrogen 41 #H Creatinine 6.03 #H Est Glomerular Filtrat Rate mL/min Glucose Level 278 #H Calcium Level 9.0 Bedside Glucose 249 H Medications Medication Current Medications IV Flush (NS 3 ml) 3 ml PER PROTOCOL IV ; Start 01/26/19 at 10:30 Ondansetron HCl (Zofran Tab) 4 mg Q6H PRN PO NAUSEA/VOMITING; Start 01/26/19 at 10:30 Acetaminophen (Tylenol Tab) 650 mg Q6H PRN PO .PAIN 1-3 OR TEMP; Start 01/26/19 at 10:30 Docusate Sodium (Colace) 100 mg Q12H PRN PO .CONSTIPATION; Start 01/26/19 at 10:30 Calcium Acetate (Phoslo) 667 mg BID WITH MEALS PO Last administered on 01/28/19 at 08:12; Admin Dose 667 MG; Start 01/26/19 at 10:30 Carvedilol (Coreg) 12.5 mg BID PO Last administered on 01/28/19 08:11; Admin Dose 12.5 MG; Start 01/26/19 at 21:00 Cholecalciferol (Vitamin D) 1,000 unit DAILY PO Last administered on 01/28/19 08:12; Admin Dose 1,000 UNIT; Start 01/26/19 at 10:30 Ferrous Sulfate (Ferrous Sulfate (Ec)) 325 mg BID PO Last administered on 01/28/19 08:12; Admin Dose 325 MG; Start 01/26/19 at 10:30 Folic Acid (Folic Acid) 1 mg DAILY PO Last administered on 01/28/19 08:12; Admin Dose 1 MG; Start 01/26/19 at 10:30 Hydralazine HCl (Apresoline) 75 mg BID PO Last administered on 01/28/19 08:12; Admin Dose 75 MG; Start 01/26/19 at 17:00 Isosorbide Dinitrate (Isordil) 20 mg TID PO Last administered on 01/28/19 08:12; Admin Dose 20 MG; Start 01/26/19 at 13:00 Linagliptin (Tradjenta) 5 mg DAILY PO Last administered on 01/28/19 08:11; Admin Dose 5 MG; Start 01/27/19 at 09:00 Montelukast Sodium (Singulair) 10 mg QHS PO Last administered on 01/27/19 21:42; Admin Dose 10 MG; Start 01/26/19 at 21:00 Multivit/Ca Carb/ B Cmplx/FA/Prenat (Becky-Maddy) 1 tab DAILY PO Last administered on 01/28/19 08:12; Admin Dose 1 TAB; Start 01/26/19 at 10:30 Pantoprazole (Protonix Tab) 40 mg DAILY PO Last administered on 01/28/19 08:11; Admin Dose 40 MG; Start 01/26/19 at 10:30 Diagnostic Test (Pha) (Accu-Chek) 1 ea AC MEALS AND BEDTIME XX Last administered on 4/4/19at 21:00; Admin Dose 1 EA; Start 01/26/19 at 11:30 Diagnostic Test (Pha) (Accu-Chek) 1 ea 02 XX Last administered on 01/28/19at 02:06; Admin Dose 1 EA; Start 01/27/19 at 02:00 Insulin Aspart (Novolog Insulin Pen) NOVOLOG *MILD* ALGORITHM WITH MEALS BEDTIME SC Last administered on 01/28/19at 07:55; Admin Dose 3 UNIT; Start 01/26/19 at 12:00 Miscellaneous Information 1 ea NOTE XX ; Start 01/26/19 at 11:30 Glucose (Glutose) 15 gm Q15M PRN PO DECREASED GLUCOSE; Start 01/26/19 at 11:30 Glucose (Glutose) 22.5 gm Q15M PRN PO DECREASED GLUCOSE; Start 01/26/19 at 11:30 Dextrose (D50w Syringe) 25 ml Q15M PRN IV DECREASED GLUCOSE; Start 01/26/19 at 11:30 Dextrose (D50w Syringe) 50 ml Q15M PRN IV DECREASED GLUCOSE; Start 01/26/19 at 11:30 Glucagon (Glucagen) 1 mg Q15M PRN IM DECREASED GLUCOSE; Start 01/26/19 at 11:30 Glucose (Glutose) 15 gm Q15M PRN BUCCAL DECREASED GLUCOSE; Start 01/26/19 at 11:30 Acetaminophen (Tylenol Tab) 650 mg Q4H PRN PO NON-CARDIAC PAIN LEVEL (1-3) Last administered on 01/27/19at 13:01; Admin Dose 650 MG; Start 01/26/19 at 12:30 Morphine Sulfate (morphine) 2 mg Q2H PRN IV FOR NON CARDIAC PAIN (4-10); Start 01/26/19 at 12:30 Al Hydrox/Mg Hydrox/Simethicone (Mag-Al Plus) 30 ml Q4H PRN PO GASTROINTESTINAL UPSET; Start 01/26/19 at 12:30 Ondansetron HCl (Zofran Inj) 4 mg Q4H PRN IV NAUSEA AND/OR VOMITING Last administered on 01/27/19at 08:23; Admin Dose 4 MG; Start 01/26/19 at 12:30 Docusate Sodium (Colace) 100 mg BID PO Last administered on 01/28/19at 08:12; Admin Dose 100 MG; Start 01/27/19 at 10:00 VENICE VAZ MD Jan 28, 2019 09:50
--- NOTE | 2019-01-28 15:31 | CONS ---
Assessment/Plan Assessment/Plan Hospital Course (Demo Recall) IMPRESSION: 1. Chest pain, assess for acute coronary syndrome. 2. Shortness of breath, assess for congestive heart failure. Nl EF 3. Abnormal cardiac stress test, positive for ischemia. Assess for obstructive coronary artery disease. 4. Hypertension-remains elevated 5. Dyslipidemia. 6. End-stage renal disease, on hemodialysis. 7. Anemia. 8. Hyponatremia-resolved/improved 9. Possible PNA 10. MR-mod to severe by echo this admit 11.Dizziness- 12.LE weakness- no acute findings by Head CT Recc: -Tele -serial ecg's -Continue coreg/hydralazine/isordil with further increase to improve BP control -HD tomorrow/agggresive for volume removal -pnding MRI -May require further work-up of mitral regurgitation with LEVI to assess mechanism which could be done as outpatient Consultation Date/Type/Reason Admit Date/Time Jan 27, 2019 at 15:56 Initial Consult Date 01/27/19 Type of Consult Cardiology Reason for Consultation chest pain Requesting Provider: VENICE VAZ MD Date/Time of Note DATE: 01/28/19 TIME: 15:28 Exam/Review of Systems Vital Signs Vitals Vital Signs Date Temp Pulse Resp B/P (MAP) Pulse Ox O2 O2 Flow FiO2 Time Delivery Rate 01/28/19 78 14:50 01/28/19 17 146/63 99 Room Air 13:55 (90) 01/28/19 97.8 11:46 Intake and Output 01/27/19 01/27/19 01/28/19 1414:59 22:59 06:59 IntakeIntake Total 880 ml BalanceBalance 880 ml Exam Exam Review of Systems: CONSTITUTIONAL: No fevers, chills. PULMONARY: No sob CARDIOVASCULAR: No chest pain/palpitations GASTROINTESTINAL: No nausea/vomiting. GENITOURINARY: No hematuria/dysuria. MUSCULOSKELETAL: No myagias/arthalgias. PSYCHIATRIC: The patient denies depression. NEUROLOGIC: weakness of LE Constitutional: alert Psych: no complaints Head: normocephalic ENMT: mucosa pink and moist Neck: supple, jvd (9 cm water) Respiratory: diminished breath sounds (t bases/B) Cardiovascular: regular rate and rhythm Gastrointestinal: soft, non-tender Musculoskeletal: muscle weakness (mild) Extremities: edema (trace/B) Neurological: focal weakness (of LE) Labs Result Diagram: 01/27/19 0631 01/28/19 0539 Results 24hrs Laboratory Tests Test 01/27/19 17:35 01/27/19 21:26 01/28/19 01:28 01/28/19 05:39 Bedside Glucose 189 259 H 231 H Sodium Level 133 L Potassium Level 4.3 Chloride Level 89 L Carbon Dioxide Level 33 H Anion Gap 11 Blood Urea Nitrogen 41 #H Creatinine 6.03 #H Est Glomerular Filtrat Rate mL/min Glucose Level 278 #H Calcium Level 9.0 Test 01/28/19 07:42 01/28/19 12:01 Bedside Glucose 249 H 300 H Medications Medications Current Medications IV Flush (NS 3 ml) 3 ml PER PROTOCOL IV ; Start 01/26/19 at 10:30 Ondansetron HCl (Zofran Tab) 4 mg Q6H PRN PO NAUSEA/VOMITING; Start 01/26/19 at 10:30 Acetaminophen (Tylenol Tab) 650 mg Q6H PRN PO .PAIN 1-3 OR TEMP; Start 01/26/19 at 10:30 Docusate Sodium (Colace) 100 mg Q12H PRN PO .CONSTIPATION; Start 01/26/19 at 10:30 Calcium Acetate (Phoslo) 667 mg BID WITH MEALS PO Last administered on 01/28/19 08:12; Admin Dose 667 MG; Start 01/26/19 at 10:30 Carvedilol (Coreg) 12.5 mg BID PO Last administered on 01/28/19 08:11; Admin Dose 12.5 MG; Start 01/26/19 at 21:00 Cholecalciferol (Vitamin D) 1,000 unit DAILY PO Last administered on 01/28/19 08:12; Admin Dose 1,000 UNIT; Start 01/26/19 at 10:30 Ferrous Sulfate (Ferrous Sulfate (Ec)) 325 mg BID PO Last administered on 01/28/19 08:12; Admin Dose 325 MG; Start 01/26/19 at 10:30 Folic Acid (Folic Acid) 1 mg DAILY PO Last administered on 01/28/19 08:12; Admin Dose 1 MG; Start 01/26/19 at 10:30 Hydralazine HCl (Apresoline) 75 mg BID PO Last administered on 01/28/19 08:12; Admin Dose 75 MG; Start 01/26/19 at 17:00 Isosorbide Dinitrate (Isordil) 20 mg TID PO Last administered on 01/28/19 12:03; Admin Dose 20 MG; Start 01/26/19 at 13:00 Linagliptin (Tradjenta) 5 mg DAILY PO Last administered on 01/28/19 08:11; Admin Dose 5 MG; Start 01/27/19 at 09:00 Montelukast Sodium (Singulair) 10 mg QHS PO Last administered on 01/27/19 21:42; Admin Dose 10 MG; Start 01/26/19 at 21:00 Multivit/Ca Carb/ B Cmplx/FA/Prenat (Becky-Maddy) 1 tab DAILY PO Last administered on 01/28/19 08:12; Admin Dose 1 TAB; Start 01/26/19 at 10:30 Pantoprazole (Protonix Tab) 40 mg DAILY PO Last administered on 01/28/19 08:11; Admin Dose 40 MG; Start 01/26/19 at 10:30 Diagnostic Test (Pha) (Accu-Chek) 1 ea AC MEALS AND BEDTIME XX Last administered on 01/27/19 21:00; Admin Dose 1 EA; Start 01/26/19 at 11:30 Diagnostic Test (Pha) (Accu-Chek) 1 ea 02 XX Last administered on 01/28/19 02:06; Admin Dose 1 EA; Start 01/27/19 at 02:00 Insulin Aspart (Novolog Insulin Pen) NOVOLOG *MILD* ALGORITHM WITH MEALS BEDTIME SC Last administered on 01/28/19 12:05; Admin Dose 4 UNIT; Start 01/26/19 at 12:00 Miscellaneous Information 1 ea NOTE XX ; Start 01/26/19 at 11:30 Glucose (Glutose) 15 gm Q15M PRN PO DECREASED GLUCOSE; Start 01/26/19 at 11:30 Glucose (Glutose) 22.5 gm Q15M PRN PO DECREASED GLUCOSE; Start 01/26/19 at 11:30 Dextrose (D50w Syringe) 25 ml Q15M PRN IV DECREASED GLUCOSE; Start 01/26/19 at 11:30 Dextrose (D50w Syringe) 50 ml Q15M PRN IV DECREASED GLUCOSE; Start 01/26/19 at 11:30 Glucagon (Glucagen) 1 mg Q15M PRN IM DECREASED GLUCOSE; Start 01/26/19 at 11:30 Glucose (Glutose) 15 gm Q15M PRN BUCCAL DECREASED GLUCOSE; Start 01/26/19 at 11:30 Acetaminophen (Tylenol Tab) 650 mg Q4H PRN PO NON-CARDIAC PAIN LEVEL (1-3) Last administered on 01/27/19at 13:01; Admin Dose 650 MG; Start 01/26/19 at 12:30 Morphine Sulfate (morphine) 2 mg Q2H PRN IV FOR NON CARDIAC PAIN (4-10); Start 01/26/19 at 12:30 Al Hydrox/Mg Hydrox/Simethicone (Mag-Al Plus) 30 ml Q4H PRN PO GASTROINTESTINAL UPSET; Start 01/26/19 at 12:30 Ondansetron HCl (Zofran Inj) 4 mg Q4H PRN IV NAUSEA AND/OR VOMITING Last administered on 01/27/19at 08:23; Admin Dose 4 MG; Start 01/26/19 at 12:30 Docusate Sodium (Colace) 100 mg BID PO Last administered on 01/28/19at 08:12; Admin Dose 100 MG; Start 01/27/19 at 10:00 MICHELLE DRUMMOND Jan 28, 2019 15:31
[2019-01-28] MEDS: ACETAMINOPHEN 325 MG TAB PO PRN (17:25)
[2019-01-28] MEDS ORDERED: INSULIN GLARGINE [LANTus] (100 UNITS/ML) SYG SC SCH (20:00)
[2019-01-28] MEDS: MONTELUKAST 10 MG TAB PO SCH (20:43)
[2019-01-29] VITALS (9 sets, daily range): BP systolic 141–177; BP diastolic 65–75; PULSE 68–98; RESP 16–20
[2019-01-29] MEDS ORDERED: ACCU-CHEK XX SCH (02:00)
[2019-01-29] MEDS: ACCU-CHEK XX SCH ×3 (08:12→17:19)
[2019-01-29] MEDS: DOCUSATE SODIUM 100 MG CAP PO SCH (08:18)
[2019-01-29] MEDS: LINAGLIPTIN 5 MG TABLET PO SCH (08:19)
[2019-01-29] MEDS: CALCIUM ACETATE 667 MG CAP PO SCH ×2 (08:19→17:20)
[2019-01-29] MEDS: MULTIVIT/CA CARB/B CMPLX/FA TAB PO SCH (08:19)
[2019-01-29] MEDS: PANTOPRAZOLE (EC) 40 MG TAB PO SCH (08:19)
[2019-01-29] MEDS: CHOLECALCIFEROL 1,000 UNIT TAB PO SCH (08:19)
[2019-01-29] MEDS: FERROUS SULFATE (EC) 325 MG TAB PO SCH (08:19)
[2019-01-29] MEDS: FOLIC ACID 1 MG TAB PO SCH (08:19)
[2019-01-29] MEDS: ISOSORBIDE DINITRATE 20 MG TAB PO SCH ×2 (08:20→13:09)
[2019-01-29] MEDS: INSULIN ASPART [NOVOLOG] 3 ML PEN SC SCH ×6 (08:29→17:27)
[2019-01-29] MEDS: ACETAMINOPHEN 325 MG TAB PO PRN (13:13)
--- NOTE | 2019-01-29 14:57 | PDOCDIS ---
Discharge Instructions CONDITION [id number] Patient Condition: [id number] Stable HOME CARE INSTRUCTIONS: [id number] Diet Instructions: [id number] Activity Restrictions: [id number] Slowly Increase Activity FOLLOW UP/APPOINTMENTS Follow-up Plan f/u dr shahid [address] marion 1 wk CRISTA SHAHID MD Jan 29, 2019 14:57
[2019-01-29] MEDS ORDERED: HYDR-3672 PO (15:01)
[2019-01-29] MEDS ORDERED: DOCU-144 PO (15:01)
[2019-01-29] MEDS ORDERED: ISOS20TA19 PO (15:01)
--- NOTE | 2019-01-29 15:49 | CONS ---
Assessment/Plan Assessment/Plan Hospital Course (Demo Recall) IMPRESSION: 1. Chest pain, assess for acute coronary syndrome. 2. Shortness of breath, assess for congestive heart failure. Nl EF 3. Abnormal cardiac stress test, positive for ischemia. Assess for obstructive coronary artery disease. 4. Hypertension-remains elevated 5. Dyslipidemia. 6. End-stage renal disease, on hemodialysis. 7. Anemia. 8. Hyponatremia-resolved/improved 9. Possible PNA 10. MR-mod to severe by echo this admit 11.Dizziness- 12.LE weakness- no acute findings by Head CT or MRI of brain. DJD of spine Recc: -Tele -serial ecg's -Continue coreg/hydralazine/isordil with further increase to improve BP control -HD for volume removal -May require further work-up of mitral regurgitation with LEVI to assess mechanism which could be done as outpatient and has been discussed with patient/family/primary MD -ok for d/c from cardiac standpoint Consultation Date/Type/Reason Admit Date/Time Jan 27, 2019 at 15:56 Initial Consult Date 01/27/19 Type of Consult Cardiology Reason for Consultation chest pain Requesting Provider: VENICE VAZ MD Date/Time of Note DATE: 01/29/19 TIME: 15:44 Exam/Review of Systems Vital Signs Vitals Vital Signs Date Temp Pulse Resp B/P (MAP) Pulse Ox O2 O2 Flow FiO2 Time Delivery Rate 01/29/19 98.4 77 18 141/65 98 Room Air 15:23 (90) Intake and Output 01/28/19 01/28/19 01/29/19 1515:00 23:00 07:00 IntakeIntake Total 250 ml 800 ml OutputOutput Total 3400 ml BalanceBalance 250 ml -2600 ml Exam Exam Review of Systems: CONSTITUTIONAL: No fevers, chills. PULMONARY: mild cough CARDIOVASCULAR: No chest pain/palpitations GASTROINTESTINAL: No nausea/vomiting. GENITOURINARY: No hematuria/dysuria. MUSCULOSKELETAL: No myagias/arthalgias. PSYCHIATRIC: The patient denies depression. NEUROLOGIC: No weakness Constitutional: alert, oriented Psych: no complaints Head: normocephalic ENMT: mucosa pink and moist Neck: supple, jvd (9 cm water) Respiratory: diminished breath sounds Cardiovascular: regular rate and rhythm Gastrointestinal: soft, non-tender Musculoskeletal: muscle tone (normal) Extremities: edema (none) Neurological: other (no focal deficits) Labs Result Diagram: 01/27/19 0631 01/28/19 0539 Results 24hrs Laboratory Tests Test 01/28/19 17:17 01/28/19 21:02 01/29/19 02:30 01/29/19 08:11 Bedside Glucose 204 245 H 190 237 H Test 01/29/19 11:53 Bedside Glucose 179 Medications Medications Current Medications IV Flush (NS 3 ml) 3 ml PER PROTOCOL IV ; Start 01/26/19 at 10:30 Ondansetron HCl (Zofran Tab) 4 mg Q6H PRN PO NAUSEA/VOMITING; Start 01/26/19 at 10:30 Docusate Sodium (Colace) 100 mg Q12H PRN PO .CONSTIPATION; Start 01/26/19 at 10:30 Calcium Acetate (Phoslo) 667 mg BID WITH MEALS PO Last administered on 01/29/19 08:19; Admin Dose 667 MG; Start 01/26/19 at 10:30 Carvedilol (Coreg) 12.5 mg BID PO Last administered on 01/29/19 08:19; Admin Dose 12.5 MG; Start 01/26/19 at 21:00 Cholecalciferol (Vitamin D) 1,000 unit DAILY PO Last administered on 01/29/19 08:19; Admin Dose 1,000 UNIT; Start 01/26/19 at 10:30 Ferrous Sulfate (Ferrous Sulfate (Ec)) 325 mg BID PO Last administered on 01/29/19 08:19; Admin Dose 325 MG; Start 01/26/19 at 10:30 Folic Acid (Folic Acid) 1 mg DAILY PO Last administered on 01/29/19 08:19; Admin Dose 1 MG; Start 01/26/19 at 10:30 Isosorbide Dinitrate (Isordil) 20 mg TID PO Last administered on 01/29/19 13:09; Admin Dose 20 MG; Start 01/26/19 at 13:00 Linagliptin (Tradjenta) 5 mg DAILY PO Last administered on 01/29/19 08:19; Admin Dose 5 MG; Start 01/27/19 at 09:00 Montelukast Sodium (Singulair) 10 mg QHS PO Last administered on 01/28/19 20:43; Admin Dose 10 MG; Start 01/26/19 at 21:00 Multivit/Ca Carb/ B Cmplx/FA/Prenat (Becky-Maddy) 1 tab DAILY PO Last administered on 01/29/19 08:19; Admin Dose 1 TAB; Start 01/26/19 at 10:30 Pantoprazole (Protonix Tab) 40 mg DAILY PO Last administered on 01/29/19 08:19; Admin Dose 40 MG; Start 01/26/19 at 10:30 Diagnostic Test (Pha) (Accu-Chek) 1 ea AC MEALS AND BEDTIME XX Last administered on 01/29/19 11:57; Admin Dose 1 EA; Start 01/26/19 at 11:30 Insulin Aspart (Novolog Insulin Pen) NOVOLOG *MILD* ALGORITHM WITH MEALS BEDTIME SC Last administered on 01/29/19 11:55; Admin Dose 1 UNIT; Start 01/26/19 at 12:00 Miscellaneous Information 1 ea NOTE XX ; Start 01/26/19 at 11:30 Glucose (Glutose) 15 gm Q15M PRN PO DECREASED GLUCOSE; Start 01/26/19 at 11:30 Glucose (Glutose) 22.5 gm Q15M PRN PO DECREASED GLUCOSE; Start 01/26/19 at 11:30 Dextrose (D50w Syringe) 25 ml Q15M PRN IV DECREASED GLUCOSE; Start 01/26/19 at 11:30 Dextrose (D50w Syringe) 50 ml Q15M PRN IV DECREASED GLUCOSE; Start 01/26/19 at 11:30 Glucagon (Glucagen) 1 mg Q15M PRN IM DECREASED GLUCOSE; Start 01/26/19 at 11:30 Glucose (Glutose) 15 gm Q15M PRN BUCCAL DECREASED GLUCOSE; Start 01/26/19 at 11:30 Acetaminophen (Tylenol Tab) 650 mg Q4H PRN PO NON-CARDIAC PAIN LEVEL (1-3) Last administered on 01/29/19 13:13; Admin Dose 650 MG; Start 01/26/19 at 12:30 Morphine Sulfate (morphine) 2 mg Q2H PRN IV FOR NON CARDIAC PAIN (4-10); Start 01/26/19 at 12:30 Al Hydrox/Mg Hydrox/Simethicone (Mag-Al Plus) 30 ml Q4H PRN PO GASTROINTESTINAL UPSET; Start 01/26/19 at 12:30 Ondansetron HCl (Zofran Inj) 4 mg Q4H PRN IV NAUSEA AND/OR VOMITING Last administered on 01/27/19 08:23; Admin Dose 4 MG; Start 01/26/19 at 12:30 Docusate Sodium (Colace) 100 mg BID PO Last administered on 01/29/19 08:18; Admin Dose 100 MG; Start 01/27/19 at 10:00 Hydralazine HCl (Apresoline) 100 mg BID PO Last administered on 01/29/19 08:20; Admin Dose 100 MG; Start 01/28/19 at 21:00 Insulin Glargine (Lantus) 8 units DAILY@2000 SC Last administered on 01/28/19 20:30; Admin Dose 8 UNITS; Start 01/28/19 at 20:00 Diagnostic Test (Pha) (Accu-Chek) 1 ea 02 XX ; Start 01/29/19 at 02:00 Insulin Aspart (Novolog Insulin Pen) 3 unit WITH MEALS SC Last administered on 01/29/19 11:55; Admin Dose 3 UNIT; Start 01/28/19 at 17:55 MICHELLE DRUMMOND Jan 29, 2019 15:48
--- NOTE | 2019-01-29 16:20 | QN ---
Documentation Comment [id number] dc CRISTA SHAHID MD Jan 29, 2019 16:20
--- NOTE | 2019-01-30 07:16 | DS ---
DATE OF ADMISSION: 01/27/2019 DATE OF DISCHARGE: 01/29/2019 HOSPITAL COURSE: The patient was admitted with diagnosis of hypertension, ESRD. INITIAL IMPRESSION: Patient has chest pain, short of breath, hyperkalemia and dizziness, hypertension, dyslipidemia, ESRD, GERD, diabetes, history of MED[employer] RECORDS CODER bleed, history of peripheral neuropathy. Underwent aggressive hemodialysis, was seen by Dr. Almas Guerin in the ER as well as Dr. Modesto Marsh from cardiology. The patient's carotid duplex scan was done, shows mild soft calcific plaque without evidence for hemodynamically significant stenosis. Antegrade flow seen within the vertebral arteries. Patient has a brain CT scan that shows no acute intracranial abnormality, mild generalized volume loss. Trace effusion of bilateral mastoid sinuses and sclerosis. Lumbar spine x-ray shows moderate facet arthropathy at L5-S1, mild to moderate facet arthropathy L4-5, brain MRIs done, shows no acute intracranial pathology, mild to moderate volume loss. The patient was seen by Dr. Modesto Marsh in consultation and was cleared to be discharged home with imdur The patient underwent a coronary angiogram, left heart catheterization shows very mild nonobstructive coronary artery disease, elevation, left heart filling pressures, no significant acute systolic gradient. The patient is stable to be discharged. DISCHARGE DIAGNOSES: 1. Angina. 2. Pulmonary edema. 3. Hypertension. 4. Diabetes mellitus. 5. Dyslipidemia. 6. Atherosclerotic heart disease. 7. History of anemia. 8. History of AV fistula placement, status post coronary angiogram, no intervention done. 9. History of MEDICAL RECORDS CODER bleed. 10. Diabetes mellitus. 11. Gastroesophageal reflux disease. 12. Hyperlipidemia. 13. Hypertension. 14. Dizziness. Patient was cleared by the internet consultant to be discharged home. DISCHARGE MEDICATIONS: 1. Hydralazine. 2. Docusate sodium. 3. Januvia. 4. Tradjenta. 5. Isosorbide. 6. Tylenol. 7. Zofran. 8. Senna. DIET: Diabetic, cardiac and renal. Dictated By: CRISTA SHAHID MD BS/NTS Conf#: [id number] DID#: [id number] MTDD
--- NOTE | 2019-02-03 13:26 | RADRPT ---
Vent Rate: 77 bpm RR Interval: 0 msec [place] Interval: 166 msec QRS Duration: 144 msec QT Interval: 482 msec QTC Interval: 545 msec P-R-T [place]: 26 - -67 - 54 degrees Sinus rhythm with occasional premature ventricular complexes and fusion complexes Right bundle branch block Left anterior fascicular block Bifascicular block Left ventricular hypertrophy with repolarization abnormality Anteroseptal infarct , age undetermined Abnormal ECG Electronically Signed By: Ruddy Roberts
== END 2019-01-29 18:03 | disposition home or self-care (01) | DRG 286 ==
LOC: E/R 04:28 → EDBEDREQ 09:48 → CANRESERV 10:43 → SDS 11:00 → CCL 11:00 → TEL 18:28 → OBSVTOIN 01-27 15:56 → TEL 01-28 12:50
PROVIDERS: ADMIT Internal Medicine; ATTEND Internal Medicine
PROC: B2011ZZ Plain Radiography of Multiple Coronary Arteries using Low Osmolar Contrast (ICD-10-PCS; 2019-01-26)
PROC: 5A1D70Z Performance of Urinary Filtration, Intermittent, Less than 6 Hours Per Day (ICD-10-PCS; 2019-01-26)
PROC: 4A023N7 Measurement of Cardiac Sampling and Pressure, Left Heart, Percutaneous Approach (ICD-10-PCS; principal; 2019-01-26 11:00)
DX: I25.119 Atherosclerotic heart disease of native coronary artery with unspecified angina pectoris (principal); J18.9 Pneumonia, unspecified organism; N18.6 End stage renal disease; E87.1 Hypo-osmolality and hyponatremia; I13.2 Hypertensive heart and chronic kidney disease with heart failure and with stage 5 chronic kidney disease, or end stage renal disease; I50.30 Unspecified diastolic (congestive) heart failure; R06.02 Shortness of breath; E78.5 Hyperlipidemia, unspecified; K21.9 Gastro-esophageal reflux disease without esophagitis; E11.9 Type 2 diabetes mellitus without complications; R00.1 Bradycardia, unspecified; Z79.4 Long term (current) use of insulin; I34.0 Nonrheumatic mitral (valve) insufficiency; Z99.2 Dependence on renal dialysis
CPT/HCPCS: 36415; 36600; 70450; 70551; 71045; 72148; 80048; 80053; 80061; 82550; 82553; 82803; 82962; 83605; 83735; 83880; 84100; 84443; 84484; 85025; 85610; 85730; 86706; 87340; 90935; 93005; 93306; 93458; 93880; 97161; G0378; C1887; J1644; J1815; J2250; J2405; J3010; Q9967